=== PATIENT | male | born 1950 | race Caucasian/White ===

== ENCOUNTER → 2021-12-28 10:48 | Outpatient (BNVA) | payer OTHER, SELFPAY | PROVIDERS: PCP Internal Medicine; Visit Provider Psychiatry & Neurology Neurology | DX: G20 Parkinson's disease (principal); F32.A Depression, unspecified; Z79.899 Other long term (current) drug therapy | CPT/HCPCS: 99212 ==

== ENCOUNTER → 2022-03-29 10:36 | Outpatient (BNVA) | payer MEDICARE, BC, SELFPAY | PROVIDERS: PCP Internal Medicine; Visit Provider Psychiatry & Neurology Neurology | DX: G20 Parkinson's disease (principal); F32.A Depression, unspecified | CPT/HCPCS: 99212 ==

== ENCOUNTER → 2022-09-27 09:34 | Outpatient (BNVA) | payer MEDICARE, BC, SELFPAY | PROVIDERS: PCP Internal Medicine; Visit Provider Psychiatry & Neurology Neurology | DX: G20 Parkinson's disease (principal); F32.A Depression, unspecified; Z79.899 Other long term (current) drug therapy | CPT/HCPCS: 99212 ==

== ENCOUNTER → 2023-04-01 10:43 | Outpatient (BNVA) | payer MEDICARE, BC, SELFPAY | PROVIDERS: PCP Internal Medicine; Visit Provider Psychiatry & Neurology Neurology | DX: G20 Parkinson's disease (principal); F32.A Depression, unspecified | CPT/HCPCS: 99212 ==

== ENCOUNTER 2023-10-02 12:31 | Outpatient (AMB) | payer MEDICARE, BC, SELFPAY ==
--- NOTE | 2023-10-02 12:41 | MHC.OFFVIS ---
Intake Vital Signs 10/02/23 12:42 Height 5 ft 6 in Weight 171 lb 8 oz BMI 27.7 BP 114/72 Blood Pressure Location Rt brachial Position Sitting Respiration 17 Pulse 56 Pulse Source Pulse Oximeter Pulse Oximetry (%) 95 Oxygen Delivery Method Room Air Intake Visit Reasons: 6 mo follow up-confirmed Intake Note: Pt presents to the office for a 6 month follow up for tremors. He reports his tremors of the left upper extremity have gotten much worse since his last visit. Social Science Research Assistant Required: No Allergies pramipexole Allergy (Severe, Verified 10/02/23 12:45) Swelling metronidazole Adverse Reaction (Severe, Verified 10/02/23 12:45) Rash Medication List - Last Reconciled 10/02/23 by Janice Rushing MD apixaban (Eliquis) 5 mg PO BID aspirin (Adult Low Dose Aspirin) 81 mg PO DAILY carbidopa-levodopa 25-100 mg (Sinemet) 2 tabs PO TID 90 days carbidopa-levodopa 50-200 mg ER 1 tab PO BEDTIME citalopram 10 mg PO DAILY 90 days coenzyme Q10 200 mg PO DAILY melatonin 5 mg PO BEDTIME PRN metformin 500 mg PO DAILY metoprolol succinate ER 50 mg PO BID nitroglycerin 0.4 mg sublingual Q5M PRN rasagiline 1 mg PO DAILY 90 days rosuvastatin 5 mg PO DAILY HPI HPI Comments History of Present Illness Details 73y/o male comes for follow up. He did PT at [facility] ( [facility]) and it helped.He had 2 falls since last visit.He bedn down to take a tape of the floor and when he stood he fell backwards. The second fall was when he was trying to put his socks while sitting he slumped to the side. He noticed increase in tremors but does not affect his ADLs.He is losing balance more often. The tremors are worse when he is stressed.He is independent in his ADLs. His mood is good on citalopram.He is less irritable and more motivated. His voice improved. Parkinsons disease is manageable he walks good . He still has sleep issues but declines sleep study . He takes melatonin or tylenol PM or belsomra. no falls, no memory issues, no hallucinations . [facility] Medical History (Updated 10/02/23 @ 12:59 by Janice Rushing MD) Parkinson's disease with dyskinesia and fluctuating manifestations Depression Parkinson's Disease Hyperlipidemia HTN (hypertension) Heart disease Angina at rest STEMI (ST elevation myocardial infarction) Myocardial infarction Surgical History History of cataract surgery Hx of cholecystectomy Family History Mother COPD (chronic obstructive pulmonary disease) Father Hepatitis Social History Alcohol intake: never Patient Tobacco Use Status: Never used Tobacco Physical Exam Vital Signs: Last Vital Signs Pulse 56 10/02/23 12:42 Resp 17 10/02/23 12:42 BP 114/72 10/02/23 12:42 Pulse Ox 95 10/02/23 12:42 Oxygen Delivery Method Room Air 10/02/23 12:42 BMI result Body Mass Index 27.7 Const General: cooperative, healthy appearing and no acute distress Nutritional Appearance: average body habitus Orientation/consciousness: patient oriented x3 HEENT Head: Yes normal to inspection Neck Other: mild antecollis and restricted range of motion Neuro Other: Mild decreased blink and facial expression Voice- normal Mild to moderate dyskinesia Fine Finger movements - mild decreased beulah l>R Alternating hand movements - decreased beulah Hand movements - decreased beulah Foot taps- decreased beulah No cog wheel rigidity gait - stooped, mild slowness and decreased arm swing L>R General: patient oriented x3 and no focal motor deficits Cranial nerves: Yes CN's II-XII intact bilaterally, Yes Bilaterally intact EOM present, Yes Normal facial strength present, Yes Midline tongue present and Yes Ability to bilaterally rotate head present Cognition (Neuro): abnormal cognition (repeats questions frequently) Motor exam (neuro): 5/5 motor strength present throughout and Normal motor muscle tone present throughout Coordination: [id number] test normal Psych Mental Status: mental status grossly normal Affect: normal affect Assessment & Plan Assessment & Plan (1) Parkinson's disease with dyskinesia and fluctuating manifestations: Code(s): G20.B2 - Parkinson's disease with dyskinesia, with fluctuations (2) Depression: Code(s): F32.A - Depression, unspecified Plan Continue sinemet 25/100 2tabs tid . Trial sinemet CR 50/200 qhs azilect 1mg qd Citalopram 10 mg qd Continue exercise Discussed sleep hygiene He did not tolerate trihexyphenidyl Medications: New carbidopa-levodopa 50-200 mg ER 1 tab PO BEDTIME 60 tabs 6RF Changed From carbidopa-levodopa 25-100 mg (Sinemet) 2 tabs PO QID 90 days 720 tabs 6RF To carbidopa-levodopa 25-100 mg (Sinemet) 2 tabs PO TID 90 days 540 tabs 6RF Coding Level of Care Code Est Pt Level 4 (23913) Diagnoses Parkinson's disease with dyskinesia and fluctuating manifestations G20.B2 Depression F32.A
[2023-10-02 12:42] VITALS: BP 114/72; PULSE 56; RESP 17; O2SAT 95; BMI 27.7
== END 2023-10-02 13:06 | disposition home or self-care (01) ==
PROVIDERS: Visit Provider Psychiatry & Neurology Neurology
DX: G20.B2 Parkinson's disease with dyskinesia, with fluctuations (principal); F32.A Depression, unspecified
CPT/HCPCS: 99214

== ENCOUNTER → 2023-10-02 12:31 | Outpatient (BNVA) | payer MEDICARE, BC, SELFPAY | PROVIDERS: Visit Provider Psychiatry & Neurology Neurology | DX: G20.B2 Parkinson's disease with dyskinesia, with fluctuations (principal); F32.A Depression, unspecified; Z79.899 Other long term (current) drug therapy | CPT/HCPCS: 99212 ==

== ENCOUNTER 2024-04-08 10:18 | Outpatient (AMB) | payer MEDICARE, BC, SELFPAY ==
--- NOTE | 2024-04-08 10:26 | MHC.OFFVIS ---
Vital Signs 04/08/24 10:27 Height 5 ft 6 in Weight 176 lb 2 oz BMI 28.4 BP 118/70 Blood Pressure Location Rt brachial Position Sitting Respiration 16 Pulse 64 Pulse Source Palpation Intake Visit Reasons: 6M follow up - Confirmed Intake Note: Pt presents for 6 month follow up for Parkinson's. 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 Allergies pramipexole Allergy (Severe, Verified 04/08/24 10:27) Swelling metronidazole Adverse Reaction (Severe, Verified 04/08/24 10:27) Rash Medication List - Last Reconciled 04/08/24 by Janice Rushing MD apixaban (Eliquis) 5 mg PO BID aspirin (Adult Low Dose Aspirin) 81 mg PO DAILY carbidopa-levodopa 25-100 mg (Sinemet) 2 tabs PO TID 90 days carbidopa-levodopa 50-200 mg ER 1 tab PO BEDTIME 90 days citalopram 10 mg PO DAILY 90 days coenzyme Q10 200 mg PO DAILY melatonin 5 mg PO BEDTIME PRN metformin 500 mg PO DAILY metoprolol succinate ER 50 mg PO BID mirabegron ER (Myrbetriq) 25 mg PO DAILY nitroglycerin 0.4 mg sublingual Q5M PRN rasagiline 1 mg PO DAILY 90 days rosuvastatin 5 mg PO DAILY HPI Comments Details: 73y/o male comes for follow up. No falls since last visit. He closed the car doors on his fingers and is not sure why. He noticed increase in tremors but does not affect his ADLs.He is losing balance more often. The tremors are worse when he is stressed.He is independent in his ADLs. His mood is OK on citalopram.Back pain worsens his mood.\ He has dyskinesias 75% of the day when stressed . His voice improved. Parkinsons disease is manageable he walks good . He still has sleep issues but declines sleep study . He takes melatonin or tylenol PM or belsomra. no falls, no memory issues, no hallucinations He has constipation. . [facility] Medical History Parkinson's disease with dyskinesia and fluctuating manifestations Depression Parkinson's Disease Hyperlipidemia HTN (hypertension) Heart disease Angina at rest STEMI (ST elevation myocardial infarction) Myocardial infarction Surgical History History of cataract surgery Hx of cholecystectomy Family History Mother COPD (chronic obstructive pulmonary disease) Father Hepatitis Social History Alcohol intake: never Patient Tobacco Use Status: Never used Tobacco Physical Exam Vital Signs: Last Vital Signs Pulse 64 04/08/24 10:27 Resp 16 04/08/24 10:27 BP 118/70 04/08/24 10:27 BMI result Body Mass Index 28.4 Const General: cooperative, healthy appearing and no acute distress Nutritional Appearance: average body habitus Orientation/consciousness: patient oriented x3 HEENT Head: Yes normal to inspection Neck Other: mild antecollis and restricted range of motion Neuro Other: Mild decreased blink and facial expression Voice- normal Mild to moderate dyskinesia Fine Finger movements - mild decreased beulah l>R Alternating hand movements - decreased beulah Hand movements - decreased beulah Foot taps- decreased beulah No cog wheel rigidity gait - stooped, mild slowness and decreased arm swing L>R Moderate dyskinesias General: patient oriented x3 and no focal motor deficits Cranial nerves: Yes CN's II-XII intact bilaterally, Yes Bilaterally intact EOM present, Yes Normal facial strength present, Yes Midline tongue present and Yes Ability to bilaterally rotate head present Cognition (Neuro): abnormal cognition (repeats questions frequently) Motor exam (neuro): 5/5 motor strength present throughout and Normal motor muscle tone present throughout Coordination: uweysc-nh-hjod test normal Psych Mental Status: mental status grossly normal Affect: normal affect Assessment & Plan Assessment & Plan (1) Parkinson's disease with dyskinesia and fluctuating manifestations: Code(s): G20.B2 - Parkinson's disease with dyskinesia, with fluctuations Category: Medical (2) Depression: Code(s): F32.A - Depression, unspecified Category: Medical Plan I will switch him to Rytary 36.25/145 2 caps qid to manage his fluctuations and dyskinesias azilect 1mg qd Citalopram 10 mg qd Continue exercise Discussed sleep hygiene He did not tolerate trihexyphenidyl Orders: Orders PT Evaluation and Treatment Today G20.B2 - Parkinson's disease with dyskinesia, with fluctuations Medications: New polyethylene glycol 3350 (Miralax) 17 grams PO DAILY 510 grams 3RF carbidopa-levodopa 36.25-145 mg ER (Rytary) divide evenly over waking hours 2 caps PO QID 240 caps 7RF Discontinued carbidopa-levodopa 50-200 mg ER Discontinued Reason: Doctor's Order 1 tab PO BEDTIME 90 days 90 tabs 6RF carbidopa-levodopa 25-100 mg (Sinemet) Discontinued Reason: Doctor's Order 2 tabs PO TID 90 days 540 tabs 6RF Coding Level of Care Code Est Pt Level 4 (86730) Complex EM visit Add On G2211 Diagnoses Parkinson's disease with dyskinesia and fluctuating manifestations G20.B2 Depression F32.A
[2024-04-08 10:27] VITALS: BP 118/70; PULSE 64; RESP 16; BMI 28.4
== END 2024-04-08 11:07 | disposition home or self-care (01) ==
PROVIDERS: PCP Internal Medicine; Visit Provider Psychiatry & Neurology Neurology
DX: G20.B2 Parkinson's disease with dyskinesia, with fluctuations (principal); F32.A Depression, unspecified
CPT/HCPCS: 99214; G2211

== ENCOUNTER → 2024-04-08 10:18 | Outpatient (BNVA) | payer MEDICARE, BC, SELFPAY | PROVIDERS: PCP Internal Medicine; Visit Provider Psychiatry & Neurology Neurology | DX: G20.B2 Parkinson's disease with dyskinesia, with fluctuations (principal); F32.A Depression, unspecified | CPT/HCPCS: 99212 ==

== ENCOUNTER 2024-08-10 12:47 | Outpatient (AMB) | payer MEDICARE, BC, SELFPAY ==
--- NOTE | 2024-08-10 12:58 | MHC.OFFVIS ---
Vital Signs 08/10/24 13:00 Height 5 ft 6 in Weight 173 lb 8 oz BMI 28.0 BP 102/58 L Blood Pressure Location Rt brachial Position Sitting Respiration 16 Pulse 64 Pulse Source Palpation Intake Visit Reasons: 2 Month Follow Up Intake Note: Pt presents for a 4 month follow up for Parkinson's. 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 Allergies pramipexole Allergy (Severe, Verified 08/10/24 12:58) Swelling metronidazole Adverse Reaction (Severe, Verified 08/10/24 12:58) Rash Medication List - Last Reconciled 08/10/24 by Janice Rushing MD apixaban (Eliquis) 5 mg PO BID aspirin (Adult Low Dose Aspirin) 81 mg PO DAILY carbidopa-levodopa 36.25-145 mg ER (Rytary) 2 caps PO QID citalopram 10 mg PO DAILY 90 days coenzyme Q10 200 mg PO DAILY duloxetine (Cymbalta) 30 mg PO DAILY melatonin 5 mg PO BEDTIME PRN metformin 500 mg PO DAILY metoprolol succinate ER 50 mg PO BID mirabegron ER (Myrbetriq) 25 mg PO DAILY nitroglycerin 0.4 mg sublingual Q5M PRN polyethylene glycol 3350 (Miralax) 17 grams PO DAILY rasagiline 1 mg PO DAILY 90 days rosuvastatin 5 mg PO DAILY HPI Comments Details: 73y/o male comes for follow up. He has low back pain-was on cortisone shots but did not help. No falls since last visit. He noticed increase in tremors but does not affect his ADLs.He is losing balance more often. The tremors are worse when he is stressed.He is independent in his ADLs. His mood is OK on citalopram.Back pain worsens his mood.\ He has dyskinesias 75% of the day when stressed . His voice improved. Parkinsons disease is manageable he walks good . He still has sleep issues but declines sleep study . He takes melatonin or tylenol PM or belsomra. no falls, no memory issues, no hallucinations He has constipation. . [facility] Medical History (Updated 08/10/24 @ 13:38 by Janice Rushing MD) Chronic back pain Parkinson's disease with dyskinesia and fluctuating manifestations Depression Parkinson's Disease Hyperlipidemia HTN (hypertension) Heart disease Angina at rest STEMI (ST elevation myocardial infarction) Myocardial infarction Surgical History History of cataract surgery Hx of cholecystectomy Family History Mother COPD (chronic obstructive pulmonary disease) Father Hepatitis Social History Alcohol intake: never Patient Tobacco Use Status: Never used Tobacco Physical Exam Vital Signs: Last Vital Signs Pulse 64 08/10/24 13:00 Resp 16 08/10/24 13:00 BP 102/58 L 08/10/24 13:00 BMI result Body Mass Index 28.0 Const General: cooperative, healthy appearing and no acute distress Nutritional Appearance: average body habitus Orientation/consciousness: patient oriented x3 HEENT Head: Yes normal to inspection Neck Other: mild antecollis and restricted range of motion Neuro Other: Mild decreased blink and facial expression Voice- normal Mild to moderate dyskinesia Fine Finger movements - mild decreased beulah l>R Alternating hand movements - decreased beulah Hand movements - decreased beulah Foot taps- decreased beulah No cog wheel rigidity gait - stooped, mild slowness and decreased arm swing L>R Moderate dyskinesias General: patient oriented x3 and no focal motor deficits Cranial nerves: Yes CN's II-XII intact bilaterally, Yes Bilaterally intact EOM present, Yes Normal facial strength present, Yes Midline tongue present and Yes Ability to bilaterally rotate head present Cognition (Neuro): abnormal cognition (repeats questions frequently) Motor exam (neuro): 5/5 motor strength present throughout and Normal motor muscle tone present throughout Coordination: [id number] test normal Psych Mental Status: mental status grossly normal Affect: normal affect Assessment & Plan Assessment & Plan (1) Parkinson's disease with dyskinesia and fluctuating manifestations: Code(s): G20.B2 - Parkinson's disease with dyskinesia, with fluctuations Category: Medical (2) Depression: Code(s): F32.A - Depression, unspecified Category: Medical (3) Chronic back pain: Code(s): M54.9 - Dorsalgia, unspecified; G89.29 - Other chronic pain Category: Medical Plan D/c azilect Rytary was expensive so he is still on sinemet 25/100 2 tabs tid and sinemet CR 50/200 qhs Citalopram 10 mg qd Continue exercise Discussed sleep hygiene He did not tolerate trihexyphenidyl Medications: New duloxetine (Cymbalta) 30 mg PO DAILY 30 caps 6RF carbidopa-levodopa 25-100 mg (Sinemet) 2 tabs PO TID carbidopa-levodopa 50-200 mg ER 1 tab PO BEDTIME Discontinued rasagiline Discontinued Reason: Doctor's Order 1 mg PO DAILY 90 days 90 tabs 6RF carbidopa-levodopa 36.25-145 mg ER (Rytary) divide evenly over waking hours Discontinued Reason: Patient no longer taking 2 caps PO QID 240 caps 7RF Coding Level of Care Code Est Pt Level 4 (11987) Complex EM visit Add On G2211 Diagnoses Parkinson's disease with dyskinesia and fluctuating manifestations G20.B2 Depression F32.A Chronic back pain M54.9; G89.29
[2024-08-10 13:00] VITALS: BP 102/58; PULSE 64; RESP 16; BMI 28.0
== END 2024-08-10 13:51 | disposition home or self-care (01) ==
PROVIDERS: PCP Internal Medicine; Visit Provider Psychiatry & Neurology Neurology
DX: G20.B2 Parkinson's disease with dyskinesia, with fluctuations (principal); F32.A Depression, unspecified; M54.9 Dorsalgia, unspecified; G89.29 Other chronic pain
CPT/HCPCS: 99214; G2211

== ENCOUNTER → 2024-08-10 12:47 | Outpatient (BNVA) | payer MEDICARE, BC, SELFPAY | PROVIDERS: PCP Internal Medicine; Visit Provider Psychiatry & Neurology Neurology | DX: G20.B2 Parkinson's disease with dyskinesia, with fluctuations (principal); F32.A Depression, unspecified; M54.9 Dorsalgia, unspecified; G89.29 Other chronic pain | CPT/HCPCS: 99212 ==

== ENCOUNTER 2024-12-09 11:15 | Outpatient (AMB) | payer MEDICARE, BC, SELFPAY ==
[2024-12-09 11:23] VITALS: BP 118/72; PULSE 61; O2SAT 97; BMI 28.7
--- NOTE | 2024-12-09 11:23 | MHC.OFFVIS ---
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 Accompanied by: Spouse Allergies pramipexole Allergy (Severe, Verified 12/09/24 11:26) Swelling metronidazole Adverse Reaction (Severe, Verified 12/09/24 11:26) Rash Medication List - Last Reconciled 12/09/24 by Janice Rushing MD apixaban (Eliquis) 5 mg PO BID aspirin (Adult Low Dose Aspirin) 81 mg PO DAILY carbidopa-levodopa 25-100 mg (Sinemet) 2 tabs PO TID carbidopa-levodopa 50-200 mg ER 1 tab PO BEDTIME citalopram 10 mg PO DAILY 90 days coenzyme Q10 200 mg PO DAILY duloxetine (Cymbalta) 30 mg PO DAILY melatonin 5 mg PO BEDTIME PRN metformin 500 mg PO DAILY metoprolol succinate ER 50 mg PO BID mirabegron ER (Myrbetriq) 25 mg PO DAILY nitroglycerin 0.4 mg sublingual Q5M PRN polyethylene glycol 3350 (Miralax) 17 grams PO DAILY rasagiline (Azilect) 1 mg PO DAILY rosuvastatin 5 mg PO DAILY Do you need a note to return to daycare/school/sports/work: No HPI Comments Details: 74y/o male comes for follow up of parkinsons disease. He has low back pain-was on cortisone shots but did not help. No falls since last visit. He noticed increase in tremors but does not affect his ADLs.He is losing balance more often. The tremors are worse when he is stressed.He is independent in his ADLs. He feels his tremors are worse with stopping azilect and starting duloxetine. He feels he is more slower in all his activities. His mood is OK on citalopram. He has dyskinesias . His voice improved. Parkinsons disease is manageable he walks good . He still has sleep issues but declines sleep study . He takes melatonin or tylenol PM or belsomra. no falls, no memory issues, no hallucinations He has constipation. . [facility] Medical History Chronic back pain Parkinson's disease with dyskinesia and fluctuating manifestations Depression Parkinson's Disease Hyperlipidemia HTN (hypertension) Heart disease Angina at rest STEMI (ST elevation myocardial infarction) Myocardial infarction Surgical History History of cataract surgery Hx of cholecystectomy Family History Mother COPD (chronic obstructive pulmonary disease) Father Hepatitis Social History Alcohol intake: never Patient Tobacco Use Status: Never used Tobacco Physical Exam Vital Signs: Last Vital Signs Pulse 61 12/09/24 11:23 BP 118/72 12/09/24 11:23 Pulse Ox 97 12/09/24 11:23 Oxygen Delivery Method Room Air 12/09/24 11:23 BMI result Body Mass Index 28.7 Const General: cooperative, healthy appearing and no acute distress Nutritional Appearance: average body habitus Orientation/consciousness: patient oriented x3 HEENT Head: Yes normal to inspection Neck Other: mild antecollis and restricted range of motion Neuro Other: Mild decreased blink and facial expression Voice- normal Mild to moderate dyskinesia Fine Finger movements - mild decreased beulah l>R Alternating hand movements - decreased beulah Hand movements - decreased beulah Foot taps- decreased beulah No cog wheel rigidity gait - stooped, mild slowness and decreased arm swing L>R no dyskinesias General: patient oriented x3 and no focal motor deficits Cranial nerves: Yes CN's II-XII intact bilaterally, Yes Bilaterally intact EOM present, Yes Normal facial strength present, Yes Midline tongue present and Yes Ability to bilaterally rotate head present Cognition (Neuro): abnormal cognition (repeats questions frequently) Motor exam (neuro): 5/5 motor strength present throughout and Normal motor muscle tone present throughout Coordination: [id number] test normal Psych Mental Status: mental status grossly normal Affect: normal affect Assessment & Plan Assessment & Plan (1) Parkinson's disease with dyskinesia and fluctuating manifestations: Code(s): G20.B2 - Parkinson's disease with dyskinesia, with fluctuations Category: Medical (2) Depression: Code(s): F32.A - Depression, unspecified Category: Medical Qualifiers: Depression Type: other depression Qualified Code(s): F32.89 - Other specified depressive episodes (3) Chronic back pain: Code(s): M54.9 - Dorsalgia, unspecified; G89.29 - Other chronic pain Category: Medical Qualifiers: Back pain location: low back pain Back pain laterality: midline Sciatica presence: with sciatica Sciatica laterality: sciatica of left side Qualified Code(s): M54.42 - Lumbago with sciatica, left side; G89.29 - Other chronic pain Plan Restart azilect 1mg qd Rytary was expensive so he is still on sinemet 25/100 2 tabs tid and sinemet CR 50/200 qhs Citalopram 10 mg qd Tylenol 500mg qhs Continue exercise Discussed sleep hygiene He did not tolerate trihexyphenidyl Orders: Referrals Pain Management Referral G89. - Other chronic pain, M54.9 - Dorsalgia, unspecified Medications: New rasagiline (Azilect) 1 mg PO DAILY 30 tabs 6RF Changed From duloxetine (Cymbalta) 60 mg (2 x 30 mg) PO DAILY 60 caps 6RF To duloxetine (Cymbalta) 30 mg PO DAILY 30 caps 6RF Coding Level of Care Code Est Pt Level 4 (73167) Complex EM visit Add On G2211 Diagnoses Parkinson's disease with dyskinesia and fluctuating manifestations G20.B2 Other depression F32.89 Depression Type: other depression Chronic midline low back pain with left-sided sciatica M54.42; G89.29 Back pain location: low back pain Back pain laterality: midline Sciatica presence: with sciatica Sciatica laterality: sciatica of left side
--- OUTSIDE RECORDS SUMMARY | 2024-12-09 11:38 | XMS_ITS | Continuity of Care Document ---
Author Organization [facility] Address [facility] [place] [address]- Care Team Providers Care Farmer Cash Grain Name Role Phone Mariella DIAS, Callum Zapata Primary Care Physician Encounter [facility] [place] Date(s): 11/02/24 - 12/02/24 [facility] [address] [place] [id number] Encounter Type: Triage Allergies, Adverse Reactions, Alerts Substance Criticality Severity Reaction Reaction Severity Status Flagyl Active Adhesive Bandage Unable to assess criticality Persistent Mild rash Active Pramipexole Dihydrochloride Active MetroNIDAZOLE Benzoate Active amLODIPine swelling of hands and legs Active Immunizations Given and Recorded Vaccine Date Status Refusal Reason Twinrix (oldterm) 1 04/06/10 Given Twinrix (oldterm) 2 12/08/09 Given Twinrix (oldterm) 3 10/06/09 Given 1Admin Note: vis declined 2Admin Note: #2 VIS given 3Admin Note: #1 VIS DECLINED Medications apixaban 5 mg oral tablet 1 tablet = 5 mg, By Mouth, 2 times a day, # 180 tablet, 3 Refills, Maintenance, 11/02/24 12:28:00 PMEST, Tablet, [facility], 168, cm, 09/25/24 10:25:00 EDT, Height, 77, kg, 10/23/23 23:03:00 EST, Dry Weight Start Date: 11/02/24 Stop Date: 10/28/25 Status: Ordered Quantity: 180.0 Unit: tablet Repeat number: 4 aspirin 81 mg oral delayed release tablet 81 mg, 1, tablet, By Mouth, Daily, # 90 tablet, Refills 3, Tot. Refills 3, Maintenance, 12/2/24 12:28:00 PM EST, Route to Pharmacy Electronically, [facility], Partial fill upon patient request if the prescription is for a schedule II opioid drug., 168, cm, 09/25/24 10:25:00 EDT, Height, 77,kg, 10/23/23 23:03:00 EST, Dry Weight Start Date: 11/02/24 Stop Date: 10/28/25 Status: Ordered Quantity: 90.0 Unit: tablet Repeat number: 4 Azilect 1 mg oral tablet 1 tablet = 1 mg, By Mouth, Daily, # 90 tablet, 1 Refills, Maintenance, 11/22/20 3:16:00 PM EST, Tablet, [facility], Partial fill upon patient request if the prescription is for a schedule II opioid drug., 167, cm, 11/22/20 14:34:00 EST, Height, 84.1, kg, 08/31/19 7:25:00 EDT, Dry Weight Start Date: 11/22/20 Stop Date: 05/21/21 Status: Ordered Quantity: 90.0 Unit: tablet Repeat number: 2 carbidopa-levodopa 25 mg-100 mg oral tablet 2 tablet, By Mouth, 4 times a day, 0 Refills, Maintenance, 08/17/19 4:28:30 PM EDT, Tablet Start Date: 08/17/19 Status: Ordered Repeat number: 1 Citalopram = 10 mg, By Mouth, Daily, 0 Refills, Maintenance, 01/17/22 9:40:00 AM EST, Partial fill upon patientrequest if the prescription is for a schedule II opioid drug. Start Date: 01/17/22 Status: Ordered Repeat number: 1 Co-Q10 100 mg oral capsule 1 capsule = 100 mg, By Mouth, Daily, # 30 capsule, 0 Refills, Maintenance, 07/19/21 9:48:00 AM EDT, Capsule, Partial fill upon patient request if the prescription is for a schedule II opioid drug. Start Date: 07/19/21 Status: Ordered Quantity: 30.0 Unit: capsule Repeat number: 1 Loratadine 10 mg, By Mouth, Daily, Maintenance, 07/27/12 3:57:33 PM EDT Start Date: 07/27/12 Status: Ordered Repeat number: 1 metFORMIN 500 mg oral tablet 1 tablet = 500 mg, By Mouth, Daily, PRN Blood Glucose, with meals, # 30 tablet, 0 Refills, Maintenance, 08/16/19 1:23:40 PM EDT, Tablet Start Date: 08/16/19 Status: Ordered Quantity: 30.0 Unit: tablet Repeat number: 1 Myrbetriq 25 mg oral tablet, extended release 1 tablet = 25 mg, By Mouth, Daily, do not crush or chew, # 30 tablet, 0 Refills, Maintenance, 09/25/24 10:25:00 AM EDT, ER Tablet, Partial fill upon patient request if the prescription is for a schedule II opioid drug. Start Date: 09/25/24 Status: Ordered Quantity: 30.0 Unit: tablet Repeat number: 1 nitroglycerin 0.4 mg sublingual tablet 1 tablet = 0.4 mg, Sublingual, Every 5 minutes, PRN for chest pain, # 25 tablet, 3 Refills, Maintenance, 10/22/18 2:59:34 PM EST, Tablet, [facility] Start Date: 10/22/18 Status: Ordered Quantity: 25.0 Unit: tablet Repeat number: 4 rosuvastatin 5 mg oral tablet 1 tablet, By Mouth, Daily, # 90 tablet, 3 Refills, Maintenance, 11/02/24 12:28:00 PM EST, [facility], 168, cm, 09/25/24 10:25:00 EDT, Height, 77, kg, 10/23/23 23:03:00 EST, Dry Weight Start Date: 11/02/24 Status: Ordered Quantity: 90.0 Unit: tablet Repeat number: 4 Toprol XL 50 mg oral tablet, extended release 50 mg, 1, tablet, By Mouth, 2 times a day, # 180 tablet, Refills 3, Tot. Refills 3, Maintenance, 11/02/24 12:28:00 PM EST, Route to Pharmacy Electronically, [facility], Partial fill upon patient request if the prescription is for a schedule II opioid drug., 168, cm, 09/25/24 10:25:00 EDT, Height, 77, kg, 10/23/23 23:03:00 EST, Dry Weight Start Date: 11/02/24 Stop Date: 10/28/25 Status: Ordered Quantity: 180.0 Unit: tablet Repeat number: 4 Problem List Condition Confirmation Course Effective Dates Status Health Status Informant Benign essential HTN Confirmed Active CAD (coronary artery disease) Confirmed Active OLSON (dyspnea on exertion) Confirmed Active Tremor of left hand Confirmed Active Hypercholesterolemia Confirmed Active Old OR (myocardial infarction) Confirmed Active Parkinson's disease Confirmed Active Parkinsonism Confirmed Active ST elevation OR (STEMI) Confirmed 07/28/[address] elevation OR (STEMI) Confirmed 07/28/12 Active Stable angina Confirmed Active Social History Social History Type Response Smoking Status Never smoker; Tobacc o user in household: No entered on: 05/10/16 Sex Sex Representation Male (finding) Patient Care team information Care Team Personnel Name: Zuleika Peralta Position: [facility] RN Supv Member Role: Primary Care Nurse Name: Radha Kirkland RN Position: S RN Member Role: Primary Care Nurse Name: Genny Nagy RN Position: [facility] ED RN W/OE and Tasks Member Role: Primary Care Nurse Name: Calulm Wolff MD Position: [facility] Physician - Primary Care Member Role: PCP Address: [address] [place] [address] Telecom: Name: Marely Hyman RN Position: [facility] RN Member Role: Primary Care Nurse Care Team Related Persons Name: JULIO ROGEL Insurance Providers Guarantor name: JUAN JOSE ROGEL Health Plan Information #: 1 Payer: MEDICARE PART B OUTPT Member Number: NA Policy Number: NA Group Number: NA Health Plan Information #: 2 Payer: BLUE MEDICARE SUPPL Member Number: NA Policy Number: NA Group Number: NA
--- OUTSIDE RECORDS SUMMARY | 2024-12-09 11:38 | XMS_ITS ---
Author Name [facility] Organization Unknown History of Medication Use Medication Directions Dispensed Refills Start Date End Date [facility] sulfamethoxazole 800 mg-trimethoprim 160 mg tablet 05/03/2024 active metoprolol succinate ER 50 mg tablet,extended release 24 hr 03/22/2024 active citalopram 10 mg tablet 03/22/2024 active rasagiline 1 mg tablet 03/22/2024 active carbidopa ER 50 mg-levodopa 200 mg tablet,extended release 03/22/2024 active cephalexin 500 mg capsule 03/22/2024 completed oxycodone 5 mg tablet 03/22/2024 completed carbidopa 25 mg-levodopa 100 mg tablet 03/22/2024 active cefdinir 300 mg capsule 03/22/2024 completed metformin 500 mg tablet 03/22/2024 active rosuvastatin 5 mg tablet 03/22/2024 active Myrbetriq 25 mg tablet,extended release 03/22/2024 active Eliquis 5 mg tablet 03/22/2024 a ctive prednisolone acetate 1 % eye drops,suspension 03/22/2024 active citalopram 10 mg tablet 03/13/2024 active Myrbetriq 25 mg tablet,extended release 03/13/2024 active carbidopa ER 50 mg-levodopa 200 mg tablet,extended release 03/13/2024 active rasagiline 1 mg tablet 03/13/2024 active oxycodone 5 mg tablet 03/13/2024 active Eliquis 5 mg tablet 03/13/2024 a ctive carbidopa 25 mg-levodopa 100 mg tablet 03/13/2024 active cefdinir 300 mg capsule 03/13/2024 completed cephalexin 500 mg capsule 03/13/2024 active prednisolone acetate 1 % eye drops,suspension 03/13/2024 active metformin 500 mg tablet 03/13/2024 active rosuvastatin 5 mg tablet 03/13/2024 active metoprolol succinate ER 50 mg tablet,extended release 24 hr 03/13/2024 active tranexamic acid Topical/Nebulization Administration 1,000 mg 1,000 mg, Topical, Once, On Sat03/09/24 at 1930, For 1 dose*For Topical/Nebulizat ion Administration* 03/12/2024 completed cefTRIAXone (ROCEPHIN) injection 1,000 mg 1,000 mg, Intramuscular, Once, On Sat03/09/24 at 2115, For 1 doseIf ordered IV then reconstitute with 10 mL sterile water or normal saline and administer IV push over 3 to 5 minutes. 03/12/2024 completed silver nitrate applicators 5 application. 5 application., Topical, Once, On Sat03/09/24 at 2315, For 1 doseApply to finger 03/12/2024 completed cephalexin (KEFLEX) 500 MG capsule Take 1 capsule (500 mg total) by mouth 4 (four) times a day for 5 days. 03/12/2024 active oxyCODONE (ROXICODONE) 5 MG immediate release tablet Take 1 tablet (5 mg total) by mouth every 6 (six) hours as needed. 03/12/2024 active lidocaine (pf) (XYLOCAINE-MPF) 2 % injection 2 mL 2 mL, Infiltration, Once, On Sat03/09/24 at 2315, For 1 dose 03/12/2024 completed Problems Problem Status Onset Date Problem Type Date of Resolution Source Open finger fracture active EncounterDiagnosisAct CTTHJM H Finger amputation, traumatic active EncounterDiagnosisAct CTTHJM H Open fracture finger distal phalanx, tuft active 2024-03-11 ProblemAct ENS_AONECT
== END 2024-12-09 12:03 | disposition home or self-care (01) ==
PROVIDERS: PCP Internal Medicine; Visit Provider Psychiatry & Neurology Neurology
DX: G20.B2 Parkinson's disease with dyskinesia, with fluctuations (principal); F32.89 Other specified depressive episodes; M54.42 Lumbago with sciatica, left side; G89.29 Other chronic pain
CPT/HCPCS: 99214; G2211

== ENCOUNTER → 2024-12-09 11:15 | Outpatient (BNVA) | payer MEDICARE, BC, SELFPAY | PROVIDERS: PCP Internal Medicine; Visit Provider Psychiatry & Neurology Neurology | DX: G20.B2 Parkinson's disease with dyskinesia, with fluctuations (principal); F32.89 Other specified depressive episodes; M54.42 Lumbago with sciatica, left side; G89.29 Other chronic pain | CPT/HCPCS: 99212 ==

== ENCOUNTER 2024-12-21 10:50 | Outpatient (AMB) | payer MEDICARE, BC, SELFPAY ==
--- NOTE | 2024-12-21 11:11 | A.OFFVIS_ITS ---
Vital Signs 12/21/24 11:13 Height 5 ft 6 in Weight 177 lb BMI 28.6 BP 137/72 Blood Pressure Location Rt brachial Position Sitting Respiration 16 Pulse 61 Pulse Source Pulse Oximeter Intake Visit Reasons: Dorsalgia Allergies pramipexole Allergy (Severe, Verified 01/04/25 13:04) Swelling metronidazole Adverse Reaction (Severe, Verified 01/04/25 13:04) Rash Medication List - Last Reconciled 12/21/24 by Nasreen Rosas LPN apixaban (Eliquis) 5 mg PO BID aspirin (Adult Low Dose Aspirin) 81 mg PO DAILY carbidopa-levodopa 25-100 mg (Sinemet) 2 tabs PO TID carbidopa-levodopa 50-200 mg ER 1 tab PO BEDTIME coenzyme Q10 200 mg PO DAILY duloxetine (Cymbalta) 30 mg PO DAILY melatonin 5 mg PO BEDTIME PRN metformin 500 mg PO DAILY metoprolol succinate ER 50 mg PO BID mirabegron ER (Myrbetriq) 25 mg PO DAILY nitroglycerin 0.4 mg sublingual Q5M PRN rasagiline (Azilect) 1 mg PO DAILY rosuvastatin 5 mg PO DAILY HPI HPI Dorsalgia: Details: History of Present Illness The patient is a 74-year-old male presenting with chronic low back pain. He reports that the pain began approximately five years ago and is predominantly felt in the midline lower back with radiation down the legs at times. The patient also experiences right shoulder pain. The back pain is constant, described as an aching 8 out of 10 in intensity, worsening with weather changes and movement, especially severe in the evenings, and hindering his sleep and daily activities. Attempts to manage the pain included topical and oral medications, providing some relief. He has undergone physical therapy, including sessions focused on low back and shoulder pain, which offered transient improvement. An MRI of the lower back conducted in 2021 suggested issues with lumbar spondylosis and disc degeneration. The pain worsened over the years, with intermittent episodes of sciatica diagnosed, contributing to his difficulties. Past interventions, including cortisone injections, provided limited duration relief. Pain Description - Onset: Approximately 5 years ago - Quality: Aching - Intensity: 8/10, most severe in the evening - Primary Location: Midline lower back - Radiation: Occasionally down the legs - Exacerbating Factors: Weather changes, movements - Relieving Factors: Topical and oral medications - Interference: Sleep disturbances, daily activities limitations Physical Exam - Musculoskeletal- Lumbar extension exacerbates pain on the right side more than the left side. Results - Tests and Diagnostics: MRI of the lower back in 2021 Pain Management - Affect: Pain impacts sleep and daily functioning - Analgesia: Current medications include topical creams and oral medications; current pain level is 8/10 - Adverse Effects: Previous cortisone injections provided only short-term relief - Activities of Daily Living: Pain limits sleep and daily activities - Aberrant Drug Related Behaviors: None reported [facility] Medical History Chronic back pain Parkinson's disease with dyskinesia and fluctuating manifestations Depression Parkinson's Disease Hyperlipidemia HTN (hypertension) Heart disease Angina at rest STEMI (ST elevation myocardial infarction) Myocardial infarction Surgical History History of cataract surgery Hx of cholecystectomy Family History Mother COPD (chronic obstructive pulmonary disease) Father Hepatitis Social History Alcohol intake: never Patient Tobacco Use Status: Never used Tobacco Physical Exam Vital Signs: Last Vital Signs Pulse 61 12/21/24 11:13 Resp 16 12/21/24 11:13 BP 137/72 12/21/24 11:13 BMI result Body Mass Index 28.6 Assessment & Plan Assessment & Plan (1) Chronic back pain: Code(s): M54.9 - Dorsalgia, unspecified; G89.29 - Other chronic pain Category: Medical Qualifiers: Back pain location: low back pain Back pain laterality: midline Sciatica presence: with sciatica Sciatica laterality: sciatica of left side Qualified Code(s): M54.42 - Lumbago with sciatica, left side; G89.29 - Other chronic pain (2) Dysfunction of the multifidus muscle of lumbar region: Code(s): M62.85 - Dysfunction of the multifidus muscles, lumbar region Category: Medical (3) Lumbar spondylosis: Code(s): M47.816 - Spondylosis without myelopathy or radiculopathy, lumbar region Category: Medical Plan Plan - Initiate right L3 medial branch nerve stimulation for two months to address chronic low back pain secondary to lumbar spondylosis and multifidus atrophy - Hold Eliquis three days prior to the procedure - Seek insurance authorization for the nerve stimulator placement - If authorized, proceed with the procedure - Consider alternative treatment if nerve stimulation does not provide relief, including radiofrequency ablation Patient was informed and verbally consented to the use of an ambient scribe for clinic note documentation during this visit. Discussion Notes I discussed the plan for right L3 medial branch nerve stimulation to address the patient's chronic low back pain attributable to lumbar spondylosis and multifidus atrophy. I explained this procedure involves placing a thin wire to stimulate the nerves, and it typically provides pain relief for 6 to 12 months post-procedure. There is a 70% success rate with this treatment. We reviewed holding Eliquis three days prior to the procedure to minimize bleeding risks. Alternative options like radiofrequency ablation were considered if the nerve stimulators are not approved or ineffective. For sleep improvement related to pain, I mentioned the use of Tylenol at appropriate doses, contingent on liver health. The patient consents to proceed with insurance requisition. Patient Instructions - Await contact regarding insurance approval - Hold Eliquis three days prior to the procedure, pending the appointment - Continue current pain management strategies until the procedure - Consider using Tylenol to aid with sleep as needed, checking for interactions with liver health - Follow up as needed for any new or worsening symptoms or complications Coding Level of Care Code New Pt Level 4 (38812) Diagnoses Chronic midline low back pain with left-sided sciatica M54.42; G89.29 Back pain location: low back pain Back pain laterality: midline Sciatica presence: with sciatica Sciatica laterality: sciatica of left side Dysfunction of the multifidus muscle of lumbar region M62.85 Lumbar spondylosis M47.816
[2024-12-21 11:13] VITALS: BP 137/72; PULSE 61; RESP 16; BMI 28.6
== END 2024-12-21 11:43 | disposition home or self-care (01) ==
PROVIDERS: PCP Internal Medicine; Referring Provider Psychiatry & Neurology Neurology; Visit Provider Internal Medicine
DX: M54.42 Lumbago with sciatica, left side (principal); G89.29 Other chronic pain; M62.85 Dysfunction of the multifidus muscles, lumbar region; M47.816 Spondylosis without myelopathy or radiculopathy, lumbar region
CPT/HCPCS: 99204

== ENCOUNTER → 2024-12-21 10:50 | Outpatient (BNVA) | payer MEDICARE, BC, SELFPAY | PROVIDERS: PCP Internal Medicine; Referring Provider Psychiatry & Neurology Neurology; Visit Provider Internal Medicine | DX: M54.42 Lumbago with sciatica, left side (principal); M47.816 Spondylosis without myelopathy or radiculopathy, lumbar region; M62.85 Dysfunction of the multifidus muscles, lumbar region; G89.29 Other chronic pain | CPT/HCPCS: 99202 ==

== ENCOUNTER 2025-01-04 12:54 | Outpatient (AMB) | payer MEDICARE, BC, SELFPAY ==
--- NOTE | 2025-01-04 13:01 | MHC.OFFVIS ---
Vital Signs 01/04/25 13:02 Height 5 ft 6 in Weight 177 lb BMI 28.6 BP 135/78 Blood Pressure Location Lt brachial Position Sitting Respiration 16 Pulse 63 Pulse Source Pulse Oximeter Pulse Oximetry (%) 99 Oxygen Delivery Method Room Air Intake Visit Reasons: Sprint Procedure Discussion Bioassayist Required: No Allergies pramipexole Allergy (Severe, Verified 01/04/25 13:04) Swelling metronidazole Adverse Reaction (Severe, Verified 01/04/25 13:04) Rash Medication List - Last Reconciled 01/04/25 by Nasreen Rosas LPN apixaban (Eliquis) 5 mg PO BID aspirin (Adult Low Dose Aspirin) 81 mg PO DAILY carbidopa-levodopa 25-100 mg (Sinemet) 2 tabs PO TID carbidopa-levodopa 50-200 mg ER 1 tab PO BEDTIME citalopram 10 mg PO DAILY coenzyme Q10 200 mg PO DAILY duloxetine (Cymbalta) 30 mg PO DAILY melatonin 5 mg PO BEDTIME PRN metformin 500 mg PO DAILY metoprolol succinate ER 50 mg PO BID mirabegron ER (Myrbetriq) 25 mg PO DAILY nitroglycerin 0.4 mg sublingual Q5M PRN rasagiline (Azilect) 1 mg PO DAILY rosuvastatin 5 mg PO DAILY HPI HPI Sprint Procedure Discussion: Details: History of Present Illness The patient is a 74-year-old male presenting with chronic low back pain and sciatica. He has been experiencing these issues for an extended period, which have not resolved with multiple previous interventions, including cortisone injections and medicinal management. The patient reports limited success with cortisone injections, having received one in the shoulder and two in the back; the shoulder injection provided temporary relief for a few weeks, but the sciatica in the back persisted. 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 The patient is currently taking duloxetine for pain management, questioning its efficacy, and is considering discontinuing its use. Pain Description - Chronic low back pain with episodes of exacerbation - Pain occasionally radiates down the leg consistent with sciatica - Previous cortisone injections provided temporary relief - Duloxetine use with undetermined efficacy - Reports discomfort primarily on the right side Physical Exam Appears afebrile. Alert and oriented. Mood and affect appropriate. Follows and participates in conversation appropriately. Respiratory effort is unlabored. Able to transition from sit to stand unassisted. Ambulates with bilaterally normal heel strike and toe off. Able to stand and walk on toes and heels. Results Pain Management - Affect: Patient expresses frustration due to lack of lasting relief from multiple procedures. - Analgesia: Currently on duloxetine; questioning its effectiveness. - Adverse Effects: None reported in relation to current pain management. - Activities of Daily Living: Pain interferes with daily activities, leading to functional limitations. - Aberrant Drug Related Behaviors: None reported. [facility] Medical History Chronic back pain Parkinson's disease with dyskinesia and fluctuating manifestations Depression Parkinson's Disease Hyperlipidemia HTN (hypertension) Heart disease Angina at rest STEMI (ST elevation myocardial infarction) Myocardial infarction Surgical History History of cataract surgery Hx of cholecystectomy Family History Mother COPD (chronic obstructive pulmonary disease) Father Hepatitis Social History Alcohol intake: never Patient Tobacco Use Status: Never used Tobacco Physical Exam Vital Signs: Last Vital Signs Pulse 63 01/04/25 13:02 Resp 16 01/04/25 13:02 BP 135/78 01/04/25 13:02 Pulse Ox 99 01/04/25 13:02 Oxygen Delivery Method Room Air 01/04/25 13:02 BMI result Body Mass Index 28.6 Assessment & Plan Assessment & Plan (1) Lumbar spondylosis: Code(s): M47.816 - Spondylosis without myelopathy or radiculopathy, lumbar region Category: Medical (2) Dysfunction of the multifidus muscle of lumbar region: Code(s): M62.85 - Dysfunction of the multifidus muscles, lumbar region Category: Medical (3) Chronic back pain: Code(s): M54.9 - Dorsalgia, unspecified; G89.29 - Other chronic pain Category: Medical Qualifiers: Back pain location: low back pain Back pain laterality: midline Sciatica presence: with sciatica Sciatica laterality: sciatica of left side Qualified Code(s): M54.42 - Lumbago with sciatica, left side; G89.29 - Other chronic pain Plan Plan - Confirm the proceeding with a right L3 medial branch nerve stimulation procedure this . - Discussed stopping Eliquis before the procedure and its restart. - Monitor and assess the effectiveness post-procedure to potentially reduce or discontinue duloxetine. - Consider radiofrequency ablation as an alternative if the patient does not want nerve stimulator. Patient was informed and verbally consented to the use of an ambient scribe for clinic note documentation during this visit. Discussion Notes We discussed the planned right L3 medial branch nerve stimulator placement thoroughly. I emphasized its utility in managing chronic low back pain and its potential to reduce or eliminate the need for duloxetine post-procedure. I explained the procedural details, including anesthetic management and post-operative care. The patient was informed about the procedure being minimally invasive with a low risk of nerve damage, based on personal experience. Alternatives such as radiofrequency ablation were discussed. The patient expressed concern about insurance coverage, which is currently unknown due to the novel nature of the procedure. Detailed instructions were given regarding anticoagulation management, specifically with Eliquis. The patient understands the need to cease Eliquis prior to surgery and when to restart post-procedure. The patient was given reassurance regarding sleeping positions post-procedure and instructed on how to manage the device. We will address any additional questions on the day of the procedure and ensure he is fully comfortable with the steps moving forward. Patient Instructions - Discontinue Eliquis before the procedure as directed and resume on evening. - You may continue the baby aspirin as directed starting today. - Proceed with the nerve stimulator procedure scheduled for . - Avoid using Biofreeze cream near the procedure site. - If the duloxetine is not effective, consider stopping it after discussing with me. - Monitor for any signs of infection or complications after the procedure and report them. - Rest as needed and follow post-procedure care instructions provided on . Coding Level of Care Code Est Pt Level 3 (49317) Diagnoses Lumbar spondylosis M47.816 Dysfunction of the multifidus muscle of lumbar region M62.85 Chronic midline low back pain with left-sided sciatica M54.42; G89.29 Back pain location: low back pain Back pain laterality: midline Sciatica presence: with sciatica Sciatica laterality: sciatica of left side
[2025-01-04 13:02] VITALS: BP 135/78; PULSE 63; RESP 16; O2SAT 99; BMI 28.6
--- OUTSIDE RECORDS SUMMARY | 2025-01-04 14:14 | XMS_ITS | Clinical Summary ---
Author Organization [facility] Address [address] [place] [phone] Care Team Providers Care Segmental Paver Installer Name Role Phone Callum Wolff MD Primary Care Provider [phone] Social History Tobacco Use Types Packs/Day Years Used Date Smoking Tobacco: Never Assessed Sex and Gender Information Value Date Recorded Sex Assigned at Not on file Gender Identity Not on file Sexual Orientation Not on file Obstetrics History Plan of Treatment Health Maintenance Due Date Last Done Comments DTaP,Tdap,and Td Vaccines (1 - Tdap) 1967 Zoster Vaccines (1 of 2) 1998 Pneumococcal Vaccine: 65+ Ye ars (1 of 1 - PCV) 2013 RSV Immunization Patients 60 + Years Old (1 - 1-dose 75+ series) 2023 Cholesterol Screening (Lipid Panel) 07/21/2024 Depression Screening 07/21/2024 Falls Risk Assessment 07/21/2024 Hepatitis C Screening 07/21/2024 Social Influencers of Health Screening 07/21/2024 COVID-19 Vaccine ( - 2023-2 5 season) 2024 Influenza Vaccine (#1) 2024 HIB Vaccines Aged Out No longer eligi ble based on patient's age to complete this topic HPV Vaccines Aged Out No longer eligi ble based on patient's age to complete this topic Hepatitis A Vaccines Aged Out No long er eligible based on patient's age to complete this topic Hepatitis B Vaccines Aged Out No long er eligible based on patient's age to complete this topic IPV Vaccines Aged Out No longer eligi ble based on patient's age to complete this topic MMR Vaccines Aged Out No longer eligi ble based on patient's age to complete this topic Meningococcal ACWY Vaccine Aged Out N o longer eligible based on patient's age to complete this topic RSV Immunization Patients Un petrona 20 months Aged Out No longer eligible b ased on patient's age to complete this topic Varicella Vaccines Aged Out No longer eligible based on patient's age to complete this topic Care Teams Segmental Paver Installer Relationship Specialty Start Date End Date Callum Wolff MD [address] [place] [address] PCP - General 03/09/24
--- OUTSIDE RECORDS SUMMARY | 2025-01-04 14:14 | XMS_ITS | Clinical Summary ---
Author Organization [facility] Address [address] [place] [address] Care Team Providers Care Policy Writer Sales Name Role Phone Callum Wolff MD Primary Care Provider [phone] Medications Medication Sig Dispensed Refills Start Date End Date Status oxyCODONE (ROXICODONE) 5 MG immediate release tablet Take 1 tablet (5 mg total) by mouth every 6 (six) hours as needed. 12 tablet 0 03/09/2024 Active Active Problems No known active problems Social History Tobacco Use Types Packs/Day Years Used Date Smoking Tobacco: Never Assessed Sex and Gender Information Value Date Recorded Sex Assigned at Male 03/09/2024 8:11 PM EDT Gender Identity Not on file Sexual Orientation Not on file Job Start Date Occupation Industry Not on file Not on file Not on file Last Filed Vital Signs Vital Sign Reading Time Taken Comments Blood Pressure 115/80 03/10/2024 12:09 AM EDT Pulse 75 03/10/2024 12:09 AM EDT Temperature 36.7 ??C (98 ??F) 03/10/2024 12:09 AM EDT Respiratory Rate 16 03/10/2024 12:09 AM EDT Oxygen Saturation 98% 03/10/2024 12:09 AM EDT Inhaled Oxygen Concentration - - Weight - - Height - - Body Mass Index - - Plan of Treatment Health Maintenance Due Date Last Done Comments Hepatitis C Screening 1948 COVID-19 Vaccine (#1) 03/16/1949 Depression Screening 1960 Preventative Health Evaluation 1966 DTap / Tdap / Td (1 - Tdap) 1967 Shingrix-Zoster Vaccine (1 of 2) 1998 Fall Risk Assessment 2013 Pneumococcal Vaccine (1 of 1 - PCV) 2013 RSV Adult > 60+ Yrs or Pregn ant (1 - 1-dose 75+ series) 2023 Influenza Vaccine (#1) 2024 Hepatitis B Vaccines Aged Out No long er eligible based on patient's age to complete this topic RSV Ped < 20 months Aged Out No longe r eligible based on patient's age to complete this topic Care Teams Policy Writer Sales Relationship Specialty Start Date End Date Callum Wolff MD [address] [place] [id number] PCP - General Internal Medicine 03/09/24
== END 2025-01-04 13:21 | disposition home or self-care (01) ==
PROVIDERS: PCP Internal Medicine; Visit Provider Internal Medicine
DX: M47.816 Spondylosis without myelopathy or radiculopathy, lumbar region (principal); M62.85 Dysfunction of the multifidus muscles, lumbar region; M54.42 Lumbago with sciatica, left side; G89.29 Other chronic pain
CPT/HCPCS: 99213

== ENCOUNTER → 2025-01-04 12:54 | Outpatient (BNVA) | payer MEDICARE, BC, SELFPAY | PROVIDERS: PCP Internal Medicine; Visit Provider Internal Medicine | DX: M47.816 Spondylosis without myelopathy or radiculopathy, lumbar region (principal); M62.85 Dysfunction of the multifidus muscles, lumbar region; M54.42 Lumbago with sciatica, left side; G89.29 Other chronic pain | CPT/HCPCS: 99212 ==

== ENCOUNTER 2025-01-07 06:39 | Outpatient (REF) | payer MEDICARE, BC, SELFPAY ==
--- OUTSIDE RECORDS SUMMARY | 2025-01-07 06:41 | XMS_ITS | Clinical Summary ---
Author Organization [facility] Address [id number] [place] [phone] Care Team Providers Care Terrazzo Tile Maker Name Role Phone Callum Wolff MD Primary Care Provider [phone] Social History Tobacco Use Types Packs/Day Years [...] age to complete this topic Care Teams Terrazzo Tile Maker Relationship Specialty Start Date End Date Callum Wolff MD [address] [place] [address] PCP - General 03/09/24
--- OUTSIDE RECORDS SUMMARY | 2025-01-07 06:41 | XMS_ITS | Clinical Summary ---
Author Organization [facility] Address [address] [place] [address] Care Team Providers Care Helper Chicken Farm Name Role Phone Callum Wolff MD Primary Care Provider [phone] Medications Medication Sig Dispensed Refills Start Date [...] age to complete this topic Care Teams Helper Chicken Farm Relationship Specialty Start Date End Date Callum Wolff MD [address] [place] [phone] PCP - General Internal Medicine 03/09/24
== END 2025-01-07 06:40 | disposition home or self-care (01) ==
LOC: CF 06:39
PROVIDERS: Visit Provider Internal Medicine
DX: Z13.89 Encounter for screening for other disorder (principal)

== ENCOUNTER 2025-01-28 06:31 | Outpatient (REF) | payer MEDICARE, BC, SELFPAY ==
--- NOTE | ~2025-01-28 | FL_ITS ---
EXAMINATION: FL GUIDANCE ONLY HISTORY: M47.816 - Spondylosis without myelopathy or radiculopathy, lumbar region COMPARISON: None available. TECHNIQUE: Fluoroscopy time: 0.1 minutes. Cumulative Dose: 2.60 mGy. DAP: 0.0133 mGym2 Images: 2. FINDINGS: AP and lateral fluoroscopic spot films of the spine are submitted. It is not possible to determine the level based on these images. FL/FL guidance in treatment room IMPRESSION: Fluoroscopy during procedure. Please see procedure report for additional information. Electronically signed by: Pankaj Otto MD 01/28/2025 11:27 AM REFUGIO
--- OUTSIDE RECORDS SUMMARY | 2025-01-28 06:35 | XMS_ITS | Clinical Summary ---
Author Organization [facility] Address [address] [place] [address] Care Team Providers Care Senior Physician Name Role Phone Callum Wolff MD Primary Care Provider [phone] Medications Medication Sig Dispensed Refills Start Date [...] age to complete this topic Care Teams Senior Physician Relationship Specialty Start Date End Date Callum Wolff MD [address] [place] [id number] PCP - General Internal Medicine 03/09/24
--- OUTSIDE RECORDS SUMMARY | 2025-01-28 06:35 | XMS_ITS | Continuity of Care Document ---
Author Organization [facility] Address [facility] [place] [address]- Care Team Providers Care Director Of Music Therapy Name Role Phone Mariella DIAS, Callum Zapata Primary Care Physician Encounter [facility] [place] Date(s): 12/23/24 - 01/22/25 [facility] [address] [place] [address] Encounter Type: Triage Allergies, Adverse Reactions, Alerts Substance Criticality Severity Reaction Reaction Severity Status Flagyl Active Adhesive Bandage Unable to assess criticality Persistent Mild rash Active amLODIPine swelling of hands and legs Active MetroNIDAZOLE Benzoate Active Pramipexole Dihydrochloride Active Immunizations Given and Recorded Vaccine Date [...] Refills, Maintenance, 11/22/20 3:16:00 PM EST, Tablet, [facility], Partial fill upon patient [...] Refills, Maintenance, 10/22/18 2:59:34 PM EST, Tablet, [facility] Start Date: 10/22/18 Status: Ordered Quantity: 25.0 Unit: tablet Repeat number: 4 rosuvastatin 5 mg oral tablet 1 tablet, By Mouth, Daily, # 90 tablet, 3 Refills, Maintenance, 11/02/24 12:28:00 PM EST, [facility], 168, cm, 09/25/24 10:25:00 EDT, Height, 77, kg, 10/23/23 23:03:00 EST, Dry Weight Start Date: 11/02/24 Status: Ordered Quantity: 90.0 Unit: tablet Repeat number: 4 Toprol XL 50 mg oral tablet, extended release 50 mg, 1, tablet, By Mouth, 2 times a day, # 180 tablet, Refills 3, Tot. Refills 3, Maintenance, 11/02/24 12:28:00 PM EST, Route to Pharmacy Electronically, [facility], Partial fill upon patient request [...] Care Team Personnel Name: Zuleika Peralta Position: [facility] RN Supv Member Role: Primary Care Nurse Name: Radha Kirkland RN Position: [facility] RN Member Role: Primary Care Nurse Name: Genny Nagy RN Position: [facility] ED RN W/OE and Tasks Member Role: Primary Care Nurse Name: Callum Wolff MD Position: [facility] Physician - Primary Care Member Role: PCP Address: [address] [place] [address] Telecom: Name: Marely Hyman RN Position: [facility] RN Member Role: Primary Care Nurse Care Team Related Persons Name: JULIO ROGEL Insurance Providers Guarantor name: JUAN JOSE CHRISSIsis Health Plan Information #: 1 Payer: MEDICARE PART B OUTPT Member Number: NA Policy Number: NA Group Number: NA Health Plan Information #: 2 Payer: BLUE MEDICARE SUPPL Member Number: NA Policy Number: NA Group Number: NA
--- OUTSIDE RECORDS SUMMARY | 2025-01-28 06:35 | XMS_ITS | Clinical Summary ---
Author Organization [facility] Address [address] [place] [phone] Care Team Providers Care Slaughterer Religious Ritual Name Role Phone Callum Wolff MD Primary Care Provider [phone] Social History Tobacco Use Types Packs/Day Years Used Date Smoking Tobacco: Never Assessed Sex and Gender Information Value Date Recorded Sex Assigned at Not on file Legal Sex Male 9:54 PM EST Gender Identity Not on file Sexual Orientation Not on file Obstetrics History Plan of Treatment Health Maintenance Due Date Last Done Comments DTaP,Tdap,and Td Vaccines (1 - Tdap) 1967 Pneumococcal Vaccine: 50+ Ye ars (1 of 1 - PCV) 1998 Zoster Vaccines (1 of 2) 1998 RSV Immunization Patients 60 + Years Old [...] patient's age to complete this topic Meningococcal B Vacine Aged Out No lo nger eligible based on patient's age to complete this topic RSV Immunization Patients Un petrona 20 months Aged Out No longer eligible b ased on patient's age to complete this topic Varicella Vaccines Aged Out No longer eligible based on patient's age to complete this topic Care Teams Slaughterer Religious Ritual Relationship Specialty Start Date End Date Callum Wolff MD [address] [place] [address] PCP - General 03/09/24
== END 2025-01-28 06:32 | disposition home or self-care (01) ==
LOC: CF 06:31
PROVIDERS: Visit Provider Internal Medicine
DX: M47.816 Spondylosis without myelopathy or radiculopathy, lumbar region (principal); M62.85 Dysfunction of the multifidus muscles, lumbar region; M54.42 Lumbago with sciatica, left side; G89.29 Other chronic pain
CPT/HCPCS: 64555; C1778; J2003

== ENCOUNTER 2025-01-28 09:41 | Outpatient (AMB) | payer MEDICARE, BC, SELFPAY ==
--- NOTE | 2025-01-28 09:50 | MHC.OFFVIS ---
Vital Signs 01/28/25 09:51 Height 5 ft 6 in Weight 177 lb BMI 28.6 BP 142/74 H Blood Pressure Location Lt brachial Position Sitting Pulse 71 Pulse Source Pulse Oximeter Pulse Oximetry (%) 99 Oxygen Delivery Method Room Air Intake Visit Reasons: Right L3 Sprint Training Consultant Required: No Allergies pramipexole Allergy (Severe, Verified 01/28/25 09:52) Swelling metronidazole Adverse Reaction (Severe, Verified 01/28/25 09:52) Rash Medication List - Last Reconciled 01/28/25 by Amelia Carter, [employer] apixaban (Eliquis) 5 mg PO BID aspirin (Adult Low Dose Aspirin) 81 mg PO DAILY carbidopa-levodopa 25-100 mg (Sinemet) 2 tabs PO TID carbidopa-levodopa 50-200 mg ER 1 tab PO BEDTIME citalopram 10 mg PO DAILY coenzyme Q10 200 mg PO DAILY duloxetine (Cymbalta) 30 mg PO DAILY melatonin 5 mg PO BEDTIME PRN metformin 500 mg PO DAILY metoprolol succinate ER 50 mg PO BID mirabegron ER (Myrbetriq) 25 mg PO DAILY nitroglycerin 0.4 mg sublingual Q5M PRN rasagiline (Azilect) 1 mg PO DAILY rosuvastatin 5 mg PO DAILY HPI HPI Right L3 Sprint: Details: Patient presents for scheduled procedure. Denies any recent cough, cold, infection, fever or other significant changes in medical history since last office visit. [facility] Medical History Chronic back pain Parkinson's disease with dyskinesia and fluctuating manifestations Depression Parkinson's Disease Hyperlipidemia HTN (hypertension) Heart disease Angina at rest STEMI (ST elevation myocardial infarction) Myocardial infarction Surgical History History of cataract surgery Hx of cholecystectomy Family History Mother COPD (chronic obstructive pulmonary disease) Father Hepatitis Social History Alcohol intake: never Patient Tobacco Use Status: Never used Tobacco Physical Exam Vital Signs: Last Vital Signs Pulse 71 01/28/25 09:51 BP 142/74 H 01/28/25 09:51 Pulse Ox 99 01/28/25 09:51 Oxygen Delivery Method Room Air 01/28/25 09:51 BMI result Body Mass Index 28.6 Office Procedures Details: Lumbar Medial Branch Nerve Stimulation Lead Placement, SPR (Sprint) System, Right L3 ? After the risks, benefits and alternatives were discussed with the patient and informed consent was obtained, patient was placed in the prone position and padded to foster comfort. The skin overlying the lumbosacral spine was prepped and draped in sterile fashion. Fluoroscopy was used to identify the spinous process and lamina in the center of the patient?s region of pain. After identifying and marking the intended target along the course of the medial branch nerve, the skin around the planned entry point and the subcutaneous tissues were injected with lidocaine 1%. An introducer needle and stimulating probe were assembled, inserted and advanced along the intended course of the medial branch nerve as it traverses the lamina medial and inferior to the zygapophyseal joint, taking care to maintain the proper depth of insertion as the introducer is advanced under fluoroscopic guidance. The introducer needle was delivered to a location in proximity to the nerve. Multiple stimulation parameters were used to deliver stimulation to the target medial branch nerve in concert with stimulating at multiple positions around the nerve. Nerve target acquisition was confirmed noting generation of paresthesias in the paravertebral regions corresponding to the level being stimulated. Various electrical parameter combinations were tested, and the lead location was adjusted (physically relocated) until the patient indicated paresthesia/muscle tension overlapping the distribution of the patient?s typical region of pain. The stimulating probe was removed from the introducer and a percutaneous lead was guided through the needle and delivered to a location in similar proximity to the nerve. Final location was verified with electrical stimulation and documented with fluoroscopy. The introducer needle was removed, and the exposed end of the percutaneous lead was attached to an external stimulator unit. Various electrical parameter combinations were again tested until the patient indicated paresthesia or muscle tension overlapping the distribution of the patient?s typical region of pain. After confirming that lead impedance was in the normal range, the external unit was detached, the needle was removed, and the lead was anchored at the skin. The lead was threaded into the connector block and electrical continuity and desired patient response was confirmed. The connector block was attached to the external stimulator unit. The site was covered with a sterile occlusive dressing. The patient was observed for stability of vital signs and comfort. Sprint PNS Device: Sprint PNS Device [id number] Percutaneous Peripheral Neuroelectrode Procedure: 54897 - Percutaneous Peripheral Neuroelectrode Procedure code (CPT) selection complete Office Meds lidocaine HCl 10 mg/mL (1 %) injection solution Performing Provider: Maddie Ramirez APRN, [facility] Performing Location: [facility] Administered by: Nasreen Rosas LPN on 01/28/25 10:05 Dose Route Admin Location Dispensed Lot Number Expiration Date ND Print Washer 1 mL subcut 5 mL Assessment & Plan Assessment & Plan (1) Lumbar spondylosis: Code(s): M47.816 - Spondylosis without myelopathy or radiculopathy, lumbar region Category: Medical (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 Patient tolerated procedure well and was discharged home in stable condition with discharge instructions. All questions were answered. We will follow-up via telephone or in clinic to assess response to therapy. A follow-up appointment was made during today's visit. Orders: Orders FL guidance in treatment room Today M47.816 - Spondylosis without myelopathy or radiculopathy, lumbar region AMB Sprint PNS Today M47.816 - Spondylosis without myelopathy or radiculopathy, lumbar region Coding Level of Care Code Procedure Only Diagnoses Lumbar spondylosis M47.816 Dysfunction of the multifidus muscle of lumbar region M62.85 Chronic midline low back pain with left-sided sciatica M54.42; G89.29 Back pain location: low back pain Back pain laterality: midline Sciatica presence: with sciatica Sciatica laterality: sciatica of left side CPT Codes Sprint PNS - Sprint PNS Device: Sprint PNS Device ([id number]) Sprint PNS - SPRINT: 07557 - Percutaneous Peripheral Neuroelectrode ([id number]) Implantable Device Implantable Device Implantable Devices Qty Print Washer Implant Date Expiration Date Analgesic PENS system 1 [facility] [employer] INC[employer]et 01/28/25 08/17/26
[2025-01-28 09:51] VITALS: BP 142/74; PULSE 71; O2SAT 99; BMI 28.6
--- OUTSIDE RECORDS SUMMARY | 2025-01-28 11:04 | XMS_ITS | Clinical Summary ---
Author Organization [facility] Address [address] [place] [address] Care Team Providers Care Pre School Manager Name Role Phone Callum Wolff MD Primary Care Provider [phone] Medications Medication Sig Dispensed Refills Start Date [...] age to complete this topic Care Teams Pre School Manager Relationship Specialty Start Date End Date Callum Wolff MD [address] [place] [phone] PCP - General Internal Medicine 03/09/24
--- OUTSIDE RECORDS SUMMARY | 2025-01-28 11:04 | XMS_ITS | Clinical Summary ---
Author Organization [facility] Address [address] [place] [phone] Care Team Providers Care Technical Specialist Cytology Name Role Phone Callum Wolff MD Primary Care Provider [phone] Social History Tobacco Use Types Packs/Day Years [...] age to complete this topic Care Teams Technical Specialist Cytology Relationship Specialty Start Date End Date Callum Wolff MD [address] [place] [address] PCP - General 03/09/24
== END 2025-01-28 10:41 | disposition home or self-care (01) ==
LOC: HO.PMCPRC 09:41
PROVIDERS: PCP Internal Medicine; Visit Provider Internal Medicine
DX: M47.816 Spondylosis without myelopathy or radiculopathy, lumbar region (principal); M62.85 Dysfunction of the multifidus muscles, lumbar region; M54.42 Lumbago with sciatica, left side; G89.29 Other chronic pain
CPT/HCPCS: 64555

== ENCOUNTER 2025-02-01 09:21 | Outpatient (AMB) | payer MEDICARE, BC, SELFPAY ==
--- NOTE | 2025-02-01 09:26 | MHC.OFFVIS ---
Vital Signs 02/01/25 09:27 BP 135/72 Blood Pressure Location Lt brachial Position Sitting Pulse 61 Pulse Source Pulse Oximeter Pulse Oximetry (%) 98 Oxygen Delivery Method Room Air Intake Visit Reasons: s/p right L3 Sprint Intake Note: 310 pain today Allergies pramipexole Allergy (Severe, Verified 02/01/25 09:32) Swelling metronidazole Adverse Reaction (Severe, Verified 02/01/25 09:32) Rash Medication List - Last Reconciled 02/01/25 by Aurelia Ordoñez LPN apixaban (Eliquis) 5 mg PO BID aspirin (Adult Low Dose Aspirin) 81 mg PO DAILY carbidopa-levodopa 25-100 mg (Sinemet) 2 tabs PO TID carbidopa-levodopa 50-200 mg ER 1 tab PO BEDTIME citalopram 10 mg PO DAILY coenzyme Q10 200 mg PO DAILY duloxetine (Cymbalta) 30 mg PO DAILY melatonin 5 mg PO BEDTIME PRN metformin 500 mg PO DAILY metoprolol succinate ER 50 mg PO BID mirabegron ER (Myrbetriq) 25 mg PO DAILY nitroglycerin 0.4 mg sublingual Q5M PRN rasagiline (Azilect) 1 mg PO DAILY rosuvastatin 5 mg PO DAILY HPI HPI s/p right L3 Sprint: Details: History of Present Illness The patient is a 74-year-old male presenting for a follow-up after the placement of a right T3 medial branch temporary nerve stimulator designed to manage chronic axial lower back pain. He initially suffered from persistent pain that significantly affected his quality of life. The nerve stimulator was placed to address this condition, and at this visit, the patient reports an improvement in symptoms and expresses satisfaction with the decision to proceed with the procedure. He has been adjusting the intensity of the stimulator to manage pain effectively and reports no significant side effects from the device. Minor oozing was observed at the stimulator site, but it was considered non-problematic, and the skin appears intact. The reduction in pain and improved functionality reflects positively on the effectiveness of the intervention. Pain Description - Onset: Chronic low back pain, ongoing. - Quality and Character: Persistent axial lower back pain. - Primary Location: Right lower back (right T3). - Radiation: Not explicitly discussed. - Intensity Adjustments: Patient has been adjusting the intensity occasionally. - Relieving Factors: Nerve stimulation has contributed to a reduction in pain. - Aggravating Factors: Not explicitly discussed. - Interference: Impacted daily activities prior to the intervention, now improving. Physical Exam - Skin- Minor oozing observed at the lead insertion site; no significant bleeding or complications noted. - Neurological- The site of nerve stimulation is clean, dry, and intact with a well-secured dressing. Results Pain Management - Affect: Pain has improved post-nerve stimulator placement; no signs of mood impact noted. - Analgesia: Intensity adjustments made for pain control. No mention of additional medication. - Adverse Effects: No significant adverse effects from the device. - Activities of Daily Living: Improved functionality in daily activities with ongoing nerve stimulation therapy. - Aberrant Drug Related Behaviors: None reported or observed. [facility] Medical History Chronic back pain Parkinson's disease with dyskinesia and fluctuating manifestations Depression Parkinson's Disease Hyperlipidemia HTN (hypertension) Heart disease Angina at rest STEMI (ST elevation myocardial infarction) Myocardial infarction Surgical History History of cataract surgery Hx of cholecystectomy Family History Mother COPD (chronic obstructive pulmonary disease) Father Hepatitis Social History Alcohol intake: never Patient Tobacco Use Status: Never used Tobacco Physical Exam Vital Signs: Last Vital Signs Pulse 61 02/01/25 09:27 BP 135/72 02/01/25 09:27 Pulse Ox 98 02/01/25 09:27 Oxygen Delivery Method Room Air 02/01/25 09:27 Assessment & Plan Assessment & Plan (1) Lumbar spondylosis: Code(s): M47.816 - Spondylosis without myelopathy or radiculopathy, lumbar region Category: Medical (2) Dysfunction of the multifidus muscle of lumbar region: Code(s): M62.85 - Dysfunction of the multifidus muscles, lumbar region Category: Medical (3) Chronic back pain: Code(s): M54.9 - Dorsalgia, unspecified; G89.29 - Other chronic pain Category: Medical Qualifiers: Back pain location: low back pain Back pain laterality: midline Sciatica presence: with sciatica Sciatica laterality: sciatica of left side Qualified Code(s): M54.42 - Lumbago with sciatica, left side; G89.29 - Other chronic pain Plan Plan The plan for the patient's axial lower back pain involves the continuation of the temporary nerve stimulation therapy. This course will continue for another seven weeks to complete a full 8-week treatment plan. Continued self-monitoring is advised, with the patient encouraged to manage the intensity settings to control pain levels effectively. The patient understands the therapy's trajectory and is satisfied with the improvement in symptoms thus far. Additional support for changing the dressing has been ensured, should it be necessary. Patient was informed and verbally consented to the use of an ambient scribe for clinic note documentation during this visit. Discussion Notes During the discussion, I emphasized the effectiveness of the temporary nerve stimulator in managing the patient's axial lower back pain. I clarified the expectations of sensation reduction over time and advised on adjustments to the stimulation intensity to maintain relief. We discussed the plan to continue therapy for a total of 8 weeks before reevaluating for lead removal. I reassured the patient of the non-concerning nature of minor oozing and instructed him on proper dressing care. The option to seek assistance from nursing staff was offered should dressing changes be problematic. I provided guidance on when to increase the intensity setting and reviewed the importance of monitoring treatment effectiveness and comfort. Patient Instructions - Continue with temporary nerve stimulation therapy for an additional seven weeks. - Adjust stimulator intensity as needed to manage pain. - Change the dressing at home once a week or sooner if it becomes loose or begins to peel. - Avoid washing the stimulator area directly; instead, pat around it with a damp cloth if necessary. - Contact the clinic if there are any issues with the stimulator or if assistance is needed with dressing changes. - Follow up for lead removal after the 8-week course. - Notify the office immediately if there are signs of infection or significant concerns with the device. Coding Level of Care Code Est Pt Level 3 (86740) Diagnoses Lumbar spondylosis M47.816 Dysfunction of the multifidus muscle of lumbar region M62.85 Chronic midline low back pain with left-sided sciatica M54.42; G89.29 Back pain location: low back pain Back pain laterality: midline Sciatica presence: with sciatica Sciatica laterality: sciatica of left side
[2025-02-01 09:27] VITALS: BP 135/72; PULSE 61; O2SAT 98
--- OUTSIDE RECORDS SUMMARY | 2025-02-01 10:11 | XMS_ITS | Clinical Summary ---
Author Organization [facility] Address [address] [place] [address] Care Team Providers Care Casino Accountant Name Role Phone Callum Wolff MD Primary Care Provider [phone] Medications Medication Sig Dispensed Refills Start Date [...] age to complete this topic Care Teams Casino Accountant Relationship Specialty Start Date End Date Callum Wolff MD [address] [place] [id number] PCP - General Internal Medicine 03/09/24
--- OUTSIDE RECORDS SUMMARY | 2025-02-01 10:11 | XMS_ITS | Clinical Summary ---
Author Organization [facility] Address [address] [place] [phone] Care Team Providers Care Materials Supervisor Name Role Phone Callum Wolff MD Primary Care Provider [phone] Social History Tobacco Use Types Packs/Day Years [...] age to complete this topic Care Teams Materials Supervisor Relationship Specialty Start Date End Date Callum Wolff MD [address] [place] [address] PCP - General 03/09/24
== END 2025-02-01 09:52 | disposition home or self-care (01) ==
PROVIDERS: PCP Internal Medicine; Visit Provider Internal Medicine
DX: M47.816 Spondylosis without myelopathy or radiculopathy, lumbar region (principal); M62.85 Dysfunction of the multifidus muscles, lumbar region; M54.42 Lumbago with sciatica, left side; G89.29 Other chronic pain
CPT/HCPCS: 99024

== ENCOUNTER → 2025-02-01 09:22 | Outpatient (BNVA) | payer MEDICARE, BC, SELFPAY | PROVIDERS: PCP Internal Medicine; Visit Provider Internal Medicine | DX: M47.816 Spondylosis without myelopathy or radiculopathy, lumbar region (principal); M62.85 Dysfunction of the multifidus muscles, lumbar region; M54.42 Lumbago with sciatica, left side; G89.29 Other chronic pain | CPT/HCPCS: 99212 ==

== ENCOUNTER 2025-03-16 11:22 | Outpatient (AMB) | payer MEDICARE, BC, SELFPAY ==
--- NOTE | 2025-03-16 11:23 | MHC.OFFVIS ---
Vital Signs 03/16/25 11:24 Height 5 ft 6 in Weight 175 lb BMI 28.2 BP 132/80 Blood Pressure Location Rt brachial Position Sitting Pulse 71 Pulse Source Pulse Oximeter Pulse Oximetry (%) 99 Oxygen Delivery Method Room Air Intake Visit Reasons: 3M Follow Up Intake Note: Patient presents for follow up med trial rasagiline. referral to pain management 12/21/24 Allergies pramipexole Allergy (Severe, Verified 03/16/25 11:24) Swelling metronidazole Adverse Reaction (Severe, Verified 03/16/25 11:24) Rash Medication List - Last Reconciled 03/16/25 by Janice Rushing MD apixaban (Eliquis) 5 mg PO BID aspirin (Adult Low Dose Aspirin) 81 mg PO DAILY carbidopa-levodopa 25-100 mg (Sinemet) 2 tabs PO TID 90 days carbidopa-levodopa 50-200 mg ER 1 tab PO BEDTIME 90 days citalopram 10 mg PO DAILY coenzyme Q10 200 mg PO DAILY duloxetine (Cymbalta) 30 mg PO DAILY empagliflozin (Jardiance) 10 mg PO DAILY melatonin 5 mg PO BEDTIME PRN metoprolol succinate ER 50 mg PO BID mirabegron ER (Myrbetriq) 25 mg PO DAILY nitroglycerin 0.4 mg sublingual Q5M PRN rasagiline (Azilect) 1 mg PO DAILY rosuvastatin 5 mg PO DAILY HPI Comments Details: 74y/o male comes for follow up of parkinsons disease. He has low back pain-was on cortisone shots and now has microlead -stimulation and is helping some days He sees Dr Braun . No falls since last visit.He has some near falls. His tremors are worse and he is slower.but does not affect his ADLs.He is losing balance more often.He is independent in his ADLs.He hasstrouble putting his socks and shoes on. His mood is OK on citalopram. He has dyskinesias . His voice is the same. He still has sleep issues but declines sleep study . He takes melatonin or tylenol PM or belsomra. no falls, no memory issues, no hallucinations He has constipation. . [facility] Medical History Chronic back pain Parkinson's disease with dyskinesia and fluctuating manifestations Depression Parkinson's Disease Hyperlipidemia HTN (hypertension) Heart disease Angina at rest STEMI (ST elevation myocardial infarction) Myocardial infarction Surgical History History of cataract surgery Hx of cholecystectomy Family History Mother COPD (chronic obstructive pulmonary disease) Father Hepatitis Social History Alcohol intake: never Patient Tobacco Use Status: Never used Tobacco Physical Exam Vital Signs: Last Vital Signs Pulse 71 03/16/25 11:24 BP 132/80 03/16/25 11:24 Pulse Ox 99 03/16/25 11:24 Oxygen Delivery Method Room Air 03/16/25 11:24 BMI result Body Mass Index 28.2 Const General: cooperative and no acute distress Nutritional Appearance: average body habitus Orientation/consciousness: patient oriented x3 HEENT Head: Yes normal to inspection Neck Other: mild antecollis and restricted range of motion Neuro Other: Mild decreased blink and facial expression Voice- normal no dyskinesia today left UE rest tremors Fine Finger movements - mild decreased beulah l>R Alternating hand movements - decreased beulah Hand movements - decreased beulah Foot taps- decreased beulah No cog wheel rigidity gait - stooped, mild slowness and decreased arm swing L>R General: patient oriented x3 and no focal motor deficits Cranial nerves: Yes CN's II-XII intact bilaterally, Yes Bilaterally intact EOM present, Yes Normal facial strength present, Yes Midline tongue present and Yes Ability to bilaterally rotate head present Cognition (Neuro): abnormal cognition (repeats questions frequently) Motor exam (neuro): 5/5 motor strength present throughout and Normal motor muscle tone present throughout Coordination: wcatak-on-cmro test normal Psych Mental Status: mental status grossly normal Affect: normal affect Assessment & Plan Assessment & Plan (1) Parkinson's disease with dyskinesia and fluctuating manifestations: Code(s): G20.B2 - Parkinson's disease with dyskinesia, with fluctuations Category: Medical (2) Depression: Code(s): F32.A - Depression, unspecified Category: Medical Qualifiers: Depression Type: other depression Qualified Code(s): F32.89 - Other specified depressive episodes (3) Chronic back pain: Code(s): M54.9 - Dorsalgia, unspecified; G89.29 - Other chronic pain Category: Medical Qualifiers: Back pain location: low back pain Back pain laterality: midline Sciatica presence: with sciatica Sciatica laterality: sciatica of left side Qualified Code(s): M54.42 - Lumbago with sciatica, left side; G89.29 - Other chronic pain Plan Continue azilect 1mg qd Rytary was expensive so he is still on sinemet 25/100 2 tabs tid and sinemet CR 50/200 qhs Citalopram 10 mg qd Tylenol 500mg qhs Continue exercise Discussed sleep hygiene He did not tolerate trihexyphenidyl Medications: Refilled rasagiline (Azilect) 1 mg PO DAILY 90 tabs 6RF citalopram 10 mg PO DAILY 90 tabs 0RF Coding Level of Care Code Est Pt Level 4 (03818) Complex EM visit Add On G2211 Diagnoses Parkinson's disease with dyskinesia and fluctuating manifestations G20.B2 Other depression F32.89 Depression Type: other depression Chronic midline low back pain with left-sided sciatica M54.42; G89.29 Back pain location: low back pain Back pain laterality: midline Sciatica presence: with sciatica Sciatica laterality: sciatica of left side
[2025-03-16 11:24] VITALS: BP 132/80; PULSE 71; O2SAT 99; BMI 28.2
--- OUTSIDE RECORDS SUMMARY | 2025-03-16 14:01 | XMS_ITS | Clinical Summary ---
Author Organization [facility] Address [address] [place] [address] Care Team Providers Care Junior Qa Analyst Name Role Phone Callum Wolff MD Primary Care Provider [phone] Medications Medication Sig Dispensed Refills Start Date [...] age to complete this topic Care Teams Junior Qa Analyst Relationship Specialty Start Date End Date Callum Wolff MD [address] [place] [id number] PCP - General Internal Medicine 03/09/24
--- OUTSIDE RECORDS SUMMARY | 2025-03-16 14:02 | XMS_ITS | Clinical Summary ---
Author Organization [facility] Address [address] [place] [phone] Care Team Providers Care Soda Fountain Clerk Name Role Phone Callum Wolff MD Primary Care Provider [phone] Social History Tobacco Use Types Packs/Day Years [...] Vaccines (1 of 2) 1998 RSV Immunization Adult Patie nts (1 - 1-dose 75+ series) 2023 Cholesterol Screening (Lipid Panel) 07/21/2024 Depression Screening 07/21/2024 Falls Risk Assessment 07/21/2024 Hepatitis C Screening 07/21/2024 Social Influencers of Health Screening 07/21/2024 COVID-19 Vaccine ( - 2023-2 5 season) 2024 Influenza Vaccine (Season Ended) 2025 HIB Vaccines Aged Out No longer eligi [...] age to complete this topic Meningococcal B Vaccine Aged Out No l onger eligible based on patient's age to complete this topic RSV Immunization Patients Un petrona 20 months Aged Out No longer eligible b ased on patient's age to complete this topic Varicella Vaccines Aged Out No longer eligible based on patient's age to complete this topic Care Teams Soda Fountain Clerk Relationship Specialty Start Date End Date Callum Wolff MD [address] [place] [address] PCP - General 03/09/24
== END 2025-03-16 12:02 | disposition home or self-care (01) ==
LOC: HO.HSMS 11:22
PROVIDERS: PCP Internal Medicine; Visit Provider Psychiatry & Neurology Neurology
DX: G20.B2 Parkinson's disease with dyskinesia, with fluctuations (principal); F32.89 Other specified depressive episodes; M54.42 Lumbago with sciatica, left side; G89.29 Other chronic pain
CPT/HCPCS: 99214; G2211

== ENCOUNTER → 2025-03-16 11:22 | Outpatient (BNVA) | payer MEDICARE, BC, SELFPAY | PROVIDERS: PCP Internal Medicine; Visit Provider Psychiatry & Neurology Neurology | DX: G20.B2 Parkinson's disease with dyskinesia, with fluctuations (principal); M54.42 Lumbago with sciatica, left side; G89.29 Other chronic pain; F32.89 Other specified depressive episodes | CPT/HCPCS: 99212 ==

== ENCOUNTER 2025-03-31 10:22 | Outpatient (AMB) | payer MEDICARE, BC, SELFPAY ==
--- NOTE | 2025-03-31 10:28 | A.OFFVIS_ITS ---
Vital Signs 03/31/25 10:30 Height 5 ft 6 in Weight 175 lb BMI 28.2 BP 114/59 L Blood Pressure Location Rt brachial Position Sitting Respiration 16 Pulse 63 Pulse Source Pulse Oximeter Intake Visit Reasons: Sprint removal Intake Note: Sprint lead pulled, intact including the tip Clinic Charge Nurse Required: No Allergies pramipexole Allergy (Severe, Verified 03/31/25 10:31) Swelling metronidazole Adverse Reaction (Severe, Verified 03/31/25 10:31) Rash Medication List - Last Reconciled 03/31/25 by Nasreen Rosas LPN apixaban (Eliquis) 5 mg PO BID aspirin (Adult Low Dose Aspirin) 81 mg PO DAILY carbidopa-levodopa 25-100 mg (Sinemet) 2 tabs PO TID 90 days carbidopa-levodopa 50-200 mg ER 1 tab PO BEDTIME 90 days citalopram 10 mg PO DAILY coenzyme Q10 200 mg PO DAILY duloxetine (Cymbalta) 30 mg PO DAILY empagliflozin (Jardiance) 10 mg PO DAILY melatonin 5 mg PO BEDTIME PRN metoprolol succinate ER 50 mg PO BID mirabegron ER (Myrbetriq) 25 mg PO DAILY nitroglycerin 0.4 mg sublingual Q5M PRN rasagiline (Azilect) 1 mg PO DAILY rosuvastatin 5 mg PO DAILY HPI HPI Sprint removal: Details: History of Present Illness The patient is a 74-year-old male presenting with chronic pain management concerns. The patient has been dealing with significant pain attributed to arthritis and tendinopathy in his right shoulder, despite previous cortisone injections. These injections provided little relief, and the shoulder pain returned quickly. The patient also reports chronic back pain, which initially responded to cortisone injections, though the benefits did not sustain beyond about five to six weeks. The resurgence of pain has led to the use of [id number] analgesics like Tylenol. He experiences exacerbated pain symptoms during weather changes and when sitting or standing for prolonged periods. Pain Description - Onset and timing: Shoulder and back pain, chronic with exacerbations - Quality and character: Deep, aching - Primary location: Right shoulder and lower back - Radiation: Pain intensity increases with weather changes, particularly rain - Exacerbating factors: Prolonged sitting or standing, weather changes - Relieving factors: Cortisone injections provided initial relief; currently using Tylenol Physical Exam - Musculoskeletal- Pain noted on movement of the right shoulder, particularly abduction; tenderness present in the lower back without specified localization Pain Management - Affect: Patient perceives pain affecting his daily activities and contributing to discomfort during weather changes - Analgesia: Uses Tylenol recently due to resurgence of pain; cortisone injections temporarily effective - Adverse Effects: No specific mention of side effects from medications - Activities of Daily Living: Pain impairs ability to remain standing or seated for extended periods, interferes slightly with daily activities - Aberrant Drug Related Behaviors: No aberrant drug-related behaviors reported or observed [facility] Medical History Chronic back pain Parkinson's disease with dyskinesia and fluctuating manifestations Depression Parkinson's Disease Hyperlipidemia HTN (hypertension) Heart disease Angina at rest STEMI (ST elevation myocardial infarction) Myocardial infarction Surgical History History of cataract surgery Hx of cholecystectomy Family History Mother COPD (chronic obstructive pulmonary disease) Father Hepatitis Social History Alcohol intake: never Patient Tobacco Use Status: Never used Tobacco Physical Exam Vital Signs: Last Vital Signs Pulse 63 03/31/25 10:30 Resp 16 03/31/25 10:30 BP 114/59 L 03/31/25 10:30 BMI result Body Mass Index 28.2 Assessment & Plan Assessment & Plan (1) Right shoulder pain: Code(s): M25.511 - Pain in right shoulder Category: Medical Plan Plan - Arrange for an x-ray to evaluate the shoulder condition thoroughly - Consider an ultrasound-guided cortisone injection for the shoulder to improve pain control - Reassess back pain without additional interventions in the immediate month; focus on symptomatic relief with Tylenol as needed - Maintain vigilance regarding the frequency of injections in both shoulder and back, limiting them to appropriate intervals Patient was informed and verbally consented to the use of an ambient scribe for clinic note documentation during this visit. Discussion Notes In my conversation with the patient, we reviewed the current status of the shoulder and back pain. I explained the potential benefits of using ultrasound guidance for future cortisone injections to improve precision and effectiveness in terms of reducing inflammation and alleviating pain. I advised limiting corticosteroid injections to once a year to mitigate the risk of secondary complications. For his chronic conditions, a shoulder x-ray has been ordered to further evaluate any degenerative changes. We discussed continuing to monitor back pain without additional interventions, permitting time to see if there is a natural course of improvement or worsening over the next month. I encouraged patience and attention to any changes in symptomatology, and the patient was agreeable to follow the proposed plan. Patient Instructions - Proceed with the shoulder x-ray as scheduled - Plan ahead for the ultrasound-guided injection; schedule and keep the appointment - Use Tylenol as needed for current pain relief - Monitor symptoms and note any changes in pain or function - Avoid frequent injections and pursue them only as planned - Follow up in the prescribed timeline for continued assessment and management Orders: Orders XR shoulder RT min 2V 03/31/25 M25.511 - Pain in right shoulder Coding Level of Care Code Est Pt Level 3 (57503) Diagnoses Right shoulder pain M25.511
[2025-03-31 10:30] VITALS: BP 114/59; PULSE 63; RESP 16; BMI 28.2
--- OUTSIDE RECORDS SUMMARY | 2025-03-31 11:42 | XMS_ITS | Clinical Summary ---
Author Organization [facility] Address [id number] [place] [phone] Care Team Providers Care Transfer Engineer Name Role Phone Callum Wolff MD Primary Care Provider [phone] Social History Tobacco Use Types Packs/Day Years [...] age to complete this topic Care Teams Transfer Engineer Relationship Specialty Start Date End Date Callum Wolff MD [address] [place] [address] PCP - General 03/09/24
--- OUTSIDE RECORDS SUMMARY | 2025-03-31 11:42 | XMS_ITS | Clinical Summary ---
Author Organization [facility] Address [address] [place] [address] Care Team Providers Care Pharmacist Aide Name Role Phone Callum Wolff MD Primary Care Provider [phone] Medications Medication Sig Dispensed Refills Start Date [...] age to complete this topic Care Teams Pharmacist Aide Relationship Specialty Start Date End Date Callum Wolff MD [address] [place] [phone] PCP - General Internal Medicine 03/09/24
== END 2025-03-31 11:31 | disposition home or self-care (01) ==
LOC: HO.PMC 10:22
PROVIDERS: PCP Internal Medicine; Visit Provider Internal Medicine
DX: M25.511 Pain in right shoulder (principal)
CPT/HCPCS: 99213

== ENCOUNTER 2025-03-31 10:22 | Outpatient (REF) | payer MEDICARE, BC, SELFPAY ==
--- NOTE | ~2025-03-31 | XR_ITS ---
EXAMINATION: XR SHOULDER 2 OR MORE VIEWS RIGHT HISTORY: M25.511 - Pain in right shoulder COMPARISON: There are no prior studies available for comparison. FINDINGS: Four views of the right shoulder are submitted. Osseous mineralization is normal. There is no fracture or dislocation. There is moderate osteoarthritis of the glenohumeral joint, with joint space narrowing and osteophyte formation. The AC joint space is preserved. There are soft tissue calcifications adjacent to the greater tuberosity of the humerus which are likely to the rotator cuff. XR/XR shoulder RT min 2V IMPRESSION: Moderate degenerative change of the glenohumeral joint. Probable rotator cuff calcifications. Electronically signed by: Pankaj Otto MD 04/02/2025 07:56 AM EDT
--- OUTSIDE RECORDS SUMMARY | 2025-03-31 13:00 | XMS_ITS | Clinical Summary ---
Author Organization [facility] Address [address] [place] [phone] Care Team Providers Care Instrument Maintenance Supervisor Name Role Phone Callum Wolff MD Primary Care Provider [phone] Social History Tobacco Use Types Packs/Day Years [...] age to complete this topic Care Teams Instrument Maintenance Supervisor Relationship Specialty Start Date End Date Callum Wolff MD [address] [place] [address] PCP - General 03/09/24
--- OUTSIDE RECORDS SUMMARY | 2025-03-31 13:00 | XMS_ITS | Clinical Summary ---
Author Organization [facility] Address [address] [place] [address] Care Team Providers Care Network Coordinator Name Role Phone Callum Wolff MD Primary Care Provider [phone] Medications Medication Sig Dispensed Refills Start Date [...] age to complete this topic Care Teams Network Coordinator Relationship Specialty Start Date End Date Callum Wolff MD [address] [place] [phone] PCP - General Internal Medicine 03/09/24
== END 2025-03-31 10:23 | disposition home or self-care (01) ==
LOC: HO.XRAY 10:22
PROVIDERS: PCP Internal Medicine; Visit Provider Internal Medicine
DX: M25.511 Pain in right shoulder (principal); M19.011 Primary osteoarthritis, right shoulder
CPT/HCPCS: 73030; 99212

== ENCOUNTER → 2025-03-31 11:30 | Outpatient (BNV) | payer MEDICARE, BC, SELFPAY | PROVIDERS: PCP Internal Medicine; Visit Provider Radiology Diagnostic Radiology | DX: M19.011 Primary osteoarthritis, right shoulder (principal) | CPT/HCPCS: 73030 ==

== ENCOUNTER 2025-07-19 11:10 | Outpatient (AMB) | payer MEDICARE, BC, SELFPAY ==
[2025-07-19 11:28] VITALS: BP 102/64; PULSE 64; O2SAT 98; BMI 27.1
--- NOTE | 2025-07-19 11:28 | A.OFFVIS_ITS ---
Vital Signs 07/19/25 11:28 Height 5 ft 6 in Weight 168 lb 2 oz BMI 27.1 BP 102/64 Blood Pressure Location Lt brachial Position Sitting Pulse 64 Pulse Source Pulse Oximeter Pulse Oximetry (%) 98 Oxygen Delivery Method Room Air Intake Visit Reasons: 4mon follow-up Intake Note: Patient presents 4 month follow up for Parkinson's [employer] Required: No Accompanied by: Spouse Allergies pramipexole Allergy (Severe, Verified 07/19/25 11:33) Swelling metronidazole Adverse Reaction (Severe, Verified 07/19/25 11:33) Rash Medication List - Last Reconciled 07/19/25 by Janice Rushing MD apixaban (Eliquis) 5 mg PO BID aspirin (Adult Low Dose Aspirin) 81 mg PO DAILY carbidopa-levodopa 25-100 mg (Sinemet) 2 tabs PO TID 90 days carbidopa-levodopa 50-200 mg ER 1 tab PO BEDTIME 90 days citalopram 10 mg PO DAILY coenzyme Q10 200 mg PO DAILY duloxetine (Cymbalta) 30 mg PO DAILY melatonin 5 mg PO BEDTIME PRN metformin 500 mg PO DAILY metoprolol succinate ER 50 mg PO BID mirabegron ER (Myrbetriq) 25 mg PO DAILY nitrofurantoin mg PO nitroglycerin 0.4 mg sublingual Q5M PRN rasagiline (Azilect) 1 mg PO DAILY rosuvastatin 5 mg PO DAILY HPI Comments Details: 74y/o male comes for follow up of parkinsons disease. Hi did not have a good summer due to UTI - sepsis . He was hospitalized for a few days. He was discharged June 07 He reports feeling tired difficult to stay asleep- 2 falls since last visit which they think it is related to Jardiance.Diabetes not well controlled His back pain - managed by pain management His tremors are worse and he is slower.but does not affect his ADLs.He is losing balance more often.He is independent in his ADLs.He hasstrouble putting his socks and shoes on. His mood is not as good since his hopsitalizations on citalopram. He has dyskinesias . His voice is the same. . He takes melatonin or tylenol PM or belsomra. no memory issues, no hallucinations He has constipation. . [facility] Medical History Chronic back pain Parkinson's disease with dyskinesia and fluctuating manifestations Depression Parkinson's Disease Hyperlipidemia HTN (hypertension) Heart disease Angina at rest STEMI (ST elevation myocardial infarction) Myocardial infarction Surgical History History of cataract surgery Hx of cholecystectomy Family History Mother COPD (chronic obstructive pulmonary disease) Father Hepatitis Social History Alcohol intake: never Patient Tobacco Use Status: Never used Tobacco Physical Exam Vital Signs: Last Vital Signs Pulse 64 07/19/25 11:28 BP 102/64 07/19/25 11:28 Pulse Ox 98 07/19/25 11:28 Oxygen Delivery Method Room Air 07/19/25 11:28 BMI result Body Mass Index 27.1 Const General: cooperative and no acute distress Nutritional Appearance: average body habitus Orientation/consciousness: patient oriented x3 HEENT Head: Yes normal to inspection Neck Other: mild antecollis and restricted range of motion Neuro Other: Mild decreased blink and facial expression Voice- normal no dyskinesia today left UE rest tremors Fine Finger movements - mild decreased beulah l>R Alternating hand movements - decreased beulah Hand movements - decreased beulah Foot taps- decreased beulah No cog wheel rigidity gait - stooped, mild slowness and decreased arm swing L>R General: patient oriented x3 and no focal motor deficits Cranial nerves: Yes CN's II-XII intact bilaterally, Yes Bilaterally intact EOM present, Yes Normal facial strength present, Yes Midline tongue present and Yes Ability to bilaterally rotate head present Cognition (Neuro): abnormal cognition (repeats questions frequently) Motor exam (neuro): 5/5 motor strength present throughout and Normal motor muscle tone present throughout Coordination: [id number] test normal Psych Mental Status: mental status grossly normal Affect: normal affect Assessment & Plan Assessment & Plan (1) Parkinson's disease with dyskinesia and fluctuating manifestations: Code(s): G20.B2 - Parkinson's disease with dyskinesia, with fluctuations Category: Medical (2) Depression: Code(s): F32.A - Depression, unspecified Category: Medical Qualifiers: Depression Type: other depression Qualified Code(s): F32.89 - Other specified depressive episodes (3) Chronic back pain: Code(s): M54.9 - Dorsalgia, unspecified; G89.29 - Other chronic pain Category: Medical Qualifiers: Back pain location: low back pain Back pain laterality: midline Sciatica presence: with sciatica Sciatica laterality: sciatica of left side Qualified Code(s): M54.42 - Lumbago with sciatica, left side; G89.29 - Other chronic pain Plan I will trial him on mirtazapine Continue azilect 1mg qd sinemet 25/100 2 tabs tid and sinemet CR 50/200 qhs Citalopram 10 mg qd Tylenol 500mg qhs Continue exercise Discussed sleep hygiene Medications: New mirtazapine 7.5 mg PO BEDTIME 30 tabs 1RF Coding Level of Care Code Est Pt Level 4 (98179) Complex EM visit Add On G2211 Diagnoses Parkinson's disease with dyskinesia and fluctuating manifestations G20.B2 Other depression F32.89 Depression Type: other depression Chronic midline low back pain with left-sided sciatica M54.42; G89.29 Back pain location: low back pain Back pain laterality: midline Sciatica presence: with sciatica Sciatica laterality: sciatica of left side
--- OUTSIDE RECORDS SUMMARY | 2025-07-19 12:24 | XMS_ITS | Clinical Summary ---
Author Organization [facility] Address [address] [place] [address] Care Team Providers Care Double End Trimmer Name Role Phone Callum Wolff MD Primary Care Provider [phone] Medications Medication Sig Dispensed Refills Start Date [...] 73 03/10/2024 12:09 AM EDT Temperature 36.7 C (98 F) 03/10/2024 12:09 AM EDT Respiratory Rate 16 [...] 1-dose 75+ series) 2023 Influenza Vaccine (#1) 2025 Hepatitis B Vaccines Aged Out No long er eligible based on patient's age to complete this topic RSV Ped < 20 months Aged Out No longe r eligible based on patient's age to complete this topic Care Teams Double End Trimmer Relationship Specialty Start Date End Date Callum Wolff MD [address] [place] [id number] PCP - General Internal Medicine 03/09/24
--- OUTSIDE RECORDS SUMMARY | 2025-07-19 12:24 | XMS_ITS ---
Author Name [facility] Organization Unknown Results Test Name/Text Value Interpretation Date Range Source WBC #/area UrnS HPF >20.0 /HPF Above high normal 07/02/2025 0 - 5 [facility] RBC #/area UrnS HPF >20.0 /HPF Above high normal 07/02/2025 0 - 3 [facility] Bacteria #/area UrnS HPF 3+ Abnormal 07/02/2025 - [facility] Glucose Ur Ql Negative 07/02/2025 - [facility] Leukocyte esterase Ur Ql Strip Moderate Abnormal 07/02/2025 - [facility] Color Ur Yellow 07/02/2025 - [facility] Sp Gr Ur 1.015 07/02/2025 1.005 - 1.03 [facility] Nitrite Ur Ql Negative 07/02/2025 - [facility] Hgb Ur Ql Large Abnormal 07/02/2025 - [facility] Ketones Ur-mCnc Negative 07/02/2025 - [facility] pH Ur 6.0 pH 07/02/2025 5 - 8 [facility] Prot Ur Strip-mCnc 100.0 mg/dL Abnormal 07/02/2025 - [facility] Clarity Ur Cloudy Abnormal 07/02/2025 - [facility] Monocytes NFr Bld Auto 7.3 % 07/02/2025 2 - 12 [facility] Monocytes # Bld Auto 0.68 K/mcL 07/02/2025 0 - 0.8 [facility] Eosinophil NFr Bld Auto 1.3 % 07/02/2025 0 - 6 [facility] Lymphocytes # Bld Auto 1.97 K/mcL 07/02/2025 1 - 3.2 [facility] Basophils # Bld Auto <0.03 K/mcL 07/02/2025 0 - 0.2 [facility] Basophils NFr Bld Auto 0.2 % 07/02/2025 0 - 2 [facility] Hct VFr Bld Auto 43.6 % 07/02/2025 40 - 54 [facility] RBC # Bld Auto 4.67 M/mcL Below low normal 07/02/2025 4.7 - 6 [facility] Lymphocytes NFr Bld Auto 21.1 % 07/02/2025 20 - 48 [facility] Neutrophils # Bld Auto 6.48 K/mcL 07/02/2025 1.8 - 7.8 [facility] Eosinophil # Bld Auto 0.12 K/mcL 07/02/2025 0 - 0.5 [facility] MCHC RBC Auto-EntMCnc 32.8 g/dL 07/02/2025 32 - 36 [facility] Neutrophils NFr Bld Auto 69.5 % 07/02/2025 44 - 74 [facility] PMV Bld Auto 12.9 FL Above high normal 07/02/2025 7.4 - 11 .4 [facility] RBC Auto 93.4 FL 07/02/2025 78 - 100 [facility] WBC # Bld Auto 9.3 K/mcL 07/02/2025 4 - 10.5 [facility] Hgb Bld-mCnc 14.3 g/dL 07/02/2025 13.5 - 18 [facility] RDW RBC Auto 13.6 % 07/02/2025 12.1 - 17.7 [facility] Platelet # Bld Auto 163.0 K/mcL 07/02/2025 150 - 4 50 [facility] MCH RBC Qn Auto 30.6 pcg 07/02/2025 25 - 33 [facility] Creat SerPl-mCnc 0.77 mg/dL 07/02/2025 0.7 - 1.3 C [facility] Chloride SerPl-sCnc 102.0 mmol/L 07/02/2025 98 - 1 07 [facility] Calcium SerPl-mCnc 8.9 mg/dL 07/02/2025 8.4 - 10.2 [facility] Glucose SerPl-mCnc 146.0 mg/dL 07/02/2025 70 - 199 [facility] Albumin SerPl-mCnc 4.8 g/dL 07/02/2025 3.5 - 5 [facility] AST SerPl-cCnc 19.0 unit/L 07/02/2025 5 - 40 CT _[facility] Anion Gap SerPl Calc-sCnc 7.0 07/02/2025 5 - 14 [facility] Sodium SerPl-sCnc 139.0 mmol/L 07/02/2025 135 - 14 5 [facility] Prot SerPl-mCnc 7.2 g/dL 07/02/2025 6.4 - 8.5 CT_ [facility] BUN SerPl-mCnc 16.0 mg/dL 07/02/2025 9 - 20 CT_ [facility] eGFRcr SerPlBld CKD-EPI 2020 93.0 mL/min/1.73m2 07/02/2025 - [facility] BUN/Creat SerPl 20.8 Above high normal 07/02/2025 12 - 20 [facility] Potassium SerPl-sCnc 3.6 mmol/L 07/02/2025 3.5 - 5.1 [facility] ALT SerPl-cCnc 12.0 unit/L 07/02/2025 7 - 52 CT [facility] Bilirub SerPl-mCnc 0.6 mg/dL 07/02/2025 0.3 - 1 [facility] CO2 SerPl-sCnc 30.0 mmol/L 07/02/2025 24 - 32 CT [facility] ALP SerPl-cCnc 74.0 unit/L 07/02/2025 34 - 104 CT [facility] Lactate Bld-sCnc 0.9 mmol/L 07/02/2025 - C [facility] Glucose Bld-mCnc 126.0 mg/dL 06/07/2025 70 - 199 [facility] Anion Gap SerPl Calc-sCnc 9.0 06/07/2025 5 - 14 [facility] Creat SerPl-mCnc 0.71 mg/dL 06/07/2025 0.7 - 1.3 C [facility] Calcium SerPl-mCnc 9.0 mg/dL 06/07/2025 8.4 - 10.2 [facility] BUN/Creat SerPl 18.3 06/07/2025 12 - 20 [facility]_ [facility] Chloride SerPl-sCnc 100.0 mmol/L 06/07/2025 98 - 1 07 [facility] eGFRcr SerPlBld CKD-EPI 2020 95.0 mL/min/1.73m2 06/07/2025 - [facility] Potassium SerPl-sCnc 3.7 mmol/L 06/07/2025 3.5 - 5.1 [facility] CO2 SerPl-sCnc 30.0 mmol/L 06/07/2025 24 - 32 CT [facility] BUN SerPl-mCnc 13.0 mg/dL 06/07/2025 9 - 20 [facility]_ [facility] Glucose SerPl-mCnc 134.0 mg/dL 06/07/2025 70 - 199 [facility] Sodium SerPl-sCnc 139.0 mmol/L 06/07/2025 135 - 14 5 [facility] Hct VFr Bld Auto 41.1 % 06/07/2025 40 - 54 CT [facility] MCHC RBC Auto-EntMCnc 32.4 g/dL 06/07/2025 32 - 36 [facility] Monocytes NFr Bld Auto 9.9 % 06/07/2025 2 - 12 [facility] Hgb Bld-mCnc 13.3 g/dL Below low normal 06/07/2025 13.5 - 18 [facility] Lymphocytes # Bld Auto 1.11 K/mcL 06/07/2025 1 - 3.2 [facility] RBC # Bld Auto 4.41 M/mcL Below low normal 06/07/2025 4.7 - 6 [facility] Neutrophils NFr Bld Auto 72.9 % 06/07/2025 44 - 74 [facility] Eosinophil # Bld Auto 0.21 K/mcL 06/07/2025 0 - 0.5 [facility] RDW RBC Auto 13.7 % 06/07/2025 12.1 - 17.7 [facility] Neutrophils # Bld Auto 5.88 K/mcL 06/07/2025 1.8 - 7.8 [facility] Monocytes # Bld Auto 0.8 K/mcL 06/07/2025 0 - 0.8 [facility] Basophils NFr Bld Auto 0.2 % 06/07/2025 0 - 2 [facility] Basophils # Bld Auto <0.03 K/mcL 06/07/2025 0 - 0.2 [facility] Eosinophil NFr Bld Auto 2.6 % 06/07/2025 0 - 6 [facility] RBC Auto 93.2 FL 06/07/2025 78 - 100 [facility] PMV Bld Auto 11.8 FL Above high normal 06/07/2025 7.4 - 11 .4 [facility] WBC # Bld Auto 8.1 K/mcL 06/07/2025 4 - 10.5 [facility] Platelet # Bld Auto 162.0 K/mcL 06/07/2025 150 - 4 50 [facility] MCH RBC Qn Auto 30.2 pcg 06/07/2025 25 - 33 [facility]_ [facility] Lymphocytes NFr Bld Auto 13.8 % Below low normal 06/07/2025 20 - 48 [facility] Glucose Bld-mCnc 130.0 mg/dL 06/07/2025 70 - 199 [facility] Glucose Bld-mCnc 133.0 mg/dL 06/06/2025 70 - 199 [facility] Glucose Bld-mCnc 137.0 mg/dL 06/06/2025 70 - 199 [facility] CO2 SerPl-sCnc 30.0 mmol/L 06/06/2025 24 - 32 CT [facility] Calcium SerPl-mCnc 8.7 mg/dL 06/06/2025 8.4 - 10.2 [facility] Chloride SerPl-sCnc 98.0 mmol/L 06/06/2025 98 - 10 7 [facility] Sodium SerPl-sCnc 135.0 mmol/L 06/06/2025 135 - 14 5 [facility] eGFRcr SerPlBld CKD-EPI 2020 96.0 mL/min/1.73m2 06/06/2025 - [facility] BUN/Creat SerPl 21.7 Above high normal 06/06/2025 12 - 20 [facility] Creat SerPl-mCnc 0.69 mg/dL Below low normal 06/06/2025 0.7 - 1.3 [facility] Potassium SerPl-sCnc 3.5 mmol/L 06/06/2025 3.5 - 5.1 [facility] Anion Gap SerPl Calc-sCnc 7.0 06/06/2025 5 - 14 [facility] Glucose SerPl-mCnc 116.0 mg/dL 06/06/2025 70 - 199 [facility] BUN SerPl-mCnc 15.0 mg/dL 06/06/2025 9 - 20 [facility] RBC Auto 92.5 FL 06/06/2025 78 - 100 [facility] WBC # Bld Auto 8.6 K/mcL 06/06/2025 4 - 10.5 CT_T [facility] RBC # Bld Auto 4.24 M/mcL Below low normal 06/06/2025 4.7 - 6 [facility] RDW RBC Auto 13.6 % 06/06/2025 12.1 - 17.7 CT_T [facility] MCHC RBC Auto-EntMCnc 32.7 g/dL 06/06/2025 32 - 36 [facility] Eosinophil # Bld Auto 0.05 K/mcL 06/06/2025 0 - 0.5 [facility] Lymphocytes NFr Bld Auto 10.1 % Below low normal 06/06/2025 20 - 48 [facility] Hct VFr Bld Auto 39.2 % Below low normal 06/06/2025 40 - 54 [facility] Neutrophils # Bld Auto 6.6 K/mcL 06/06/2025 1.8 - 7.8 [facility] Lymphocytes # Bld Auto 0.87 K/mcL Below low normal 06/06/2025 1 - 3.2 [facility] MCH RBC Qn Auto 30.2 pcg 06/06/2025 25 - 33 CT_ [facility] Hgb Bld-mCnc 12.8 g/dL Below low normal 06/06/2025 13.5 - 18 [facility] PMV Bld Auto 12.3 FL Above high normal 06/06/2025 7.4 - 11 .4 [facility] Eosinophil NFr Bld Auto 0.6 % 06/06/2025 0 - 6 [facility] Basophils NFr Bld Auto 0.2 % 06/06/2025 0 - 2 [facility] Basophils # Bld Auto <0.03 K/mcL 06/06/2025 0 - 0.2 [facility] Monocytes # Bld Auto 1.04 K/mcL Above high normal 06/06/2025 0 - 0.8 [facility] Platelet # Bld Auto 146.0 K/mcL Below low normal 06/06/2025 150 - 450 [facility] Neutrophils NFr Bld Auto 76.4 % Above high normal 06/06/2025 44 - 74 [facility] Monocytes NFr Bld Auto 12.1 % Above high normal 06/06/2025 2 - 12 [facility] Glucose Bld-mCnc 120.0 mg/dL 06/06/2025 70 - 199 [facility] Glucose Bld-mCnc 130.0 mg/dL 06/06/2025 70 - 199 [facility] Glucose Bld-mCnc 122.0 mg/dL 06/05/2025 70 - 199 [facility] Glucose Bld-mCnc 102.0 mg/dL 06/05/2025 70 - 199 [facility] BUN SerPl-mCnc 11.0 mg/dL 06/05/2025 9 - 20 [facility] BUN/Creat SerPl 15.5 06/05/2025 12 - 20 [facility] Calcium SerPl-mCnc 8.7 mg/dL 06/05/2025 8.4 - 10.2 [facility] CO2 SerPl-sCnc 29.0 mmol/L 06/05/2025 24 - 32 [facility] Anion Gap SerPl Calc-sCnc 8.0 06/05/2025 5 - 14 [facility] Creat SerPl-mCnc 0.71 mg/dL 06/05/2025 0.7 - 1.3 C [facility] Glucose SerPl-mCnc 136.0 mg/dL 06/05/2025 70 - 199 [facility] Chloride SerPl-sCnc 97.0 mmol/L Below low normal 06/05/2025 98 - 107 [facility] Sodium SerPl-sCnc 134.0 mmol/L Below low normal 06/05/2025 1 35 - 145 [facility] Potassium SerPl-sCnc 3.7 mmol/L 06/05/2025 3.5 - 5.1 [facility] eGFRcr SerPlBld CKD-EPI 2020 95.0 mL/min/1.73m2 06/05/2025 - [facility] Platelet # Bld Auto 131.0 K/mcL Below low normal 06/05/2025 150 - 450 [facility] MCH RBC Qn Auto 30.5 pcg 06/05/2025 25 - 33 [facility] MCHC RBC Auto-EntMCnc 33.2 g/dL 06/05/2025 32 - 36 [facility] PMV Bld Auto 12.2 FL Above high normal 06/05/2025 7.4 - 11 .4 [facility] WBC # Bld Auto 10.8 K/mcL Above high normal 06/05/2025 4 - 1 0.5 [facility] Neutrophils # Bld Auto 8.28 K/mcL Above high normal 06/05/2025 1.8 - 7.8 [facility] Hct VFr Bld Auto 38.5 % Below low normal 06/05/2025 40 - 54 [facility] Eosinophil NFr Bld Auto 0.1 % 06/05/2025 0 - 6 [facility] Neutrophils NFr Bld Auto 76.6 % Above high normal 06/05/2025 44 - 74 [facility] Lymphocytes NFr Bld Auto 8.1 % Below low normal 06/05/2025 20 - 48 [facility] Basophils # Bld Auto <0.03 K/mcL 06/05/2025 0 - 0.2 [facility] Lymphocytes # Bld Auto 0.87 K/mcL Below low normal 06/05/2025 1 - 3.2 [facility] RDW RBC Auto 13.4 % 06/05/2025 12.1 - 17.7 CT_T [facility] RBC # Bld Auto 4.2 M/mcL Below low normal 06/05/2025 4.7 - 6 [facility] Eosinophil # Bld Auto <0.03 K/mcL 06/05/2025 0 - 0.5 [facility] RBC Auto 91.7 FL 06/05/2025 78 - 100 [facility] Hgb Bld-mCnc 12.8 g/dL Below low normal 06/05/2025 13.5 - 18 [facility] Basophils NFr Bld Auto 0.1 % 06/05/2025 0 - 2 [facility] Monocytes # Bld Auto 1.57 K/mcL Above high normal 06/05/2025 0 - 0.8 [facility] Monocytes NFr Bld Auto 14.5 % Above high normal 06/05/2025 2 - 12 [facility] Glucose Bld-mCnc 151.0 mg/dL 06/05/2025 70 - 199 [facility] Glucose Bld-mCnc 125.0 mg/dL 06/05/2025 70 - 199 [facility] Glucose Bld-mCnc 196.0 mg/dL 06/04/2025 70 - 199 [facility] Glucose Bld-mCnc 130.0 mg/dL 06/04/2025 70 - 199 [facility] Troponin I SerPl HS-mCnc 15.0 ng/L 06/04/2025 0 - 20 [facility] eGFRcr SerPlBld CKD-EPI 2020 94.0 mL/min/1.73m2 06/04/2025 - [facility] Glucose SerPl-mCnc 119.0 mg/dL 06/04/2025 70 - 199 [facility] BUN/Creat SerPl 18.7 06/04/2025 12 - 20 [facility]_ [facility] Creat SerPl-mCnc 0.75 mg/dL 06/04/2025 0.7 - 1.3 C [facility] BUN SerPl-mCnc 14.0 mg/dL 06/04/2025 9 - 20 CT_ [facility] Sodium SerPl-sCnc 130.0 mmol/L Below low normal 06/04/2025 1 35 - 145 [facility] Chloride SerPl-sCnc 98.0 mmol/L 06/04/2025 98 - 10 7 [facility] Anion Gap SerPl Calc-sCnc 4.0 Below low normal 06/04/2025 5 - 14 [facility] Potassium SerPl-sCnc 3.7 mmol/L 06/04/2025 3.5 - 5.1 [facility] CO2 SerPl-sCnc 28.0 mmol/L 06/04/2025 24 - 32 CT [facility] Calcium SerPl-mCnc 8.4 mg/dL 06/04/2025 8.4 - 10.2 [facility] WBC # Bld Auto 9.4 K/mcL 06/04/2025 4 - 10.5 [facility] Lymphocytes # Bld Auto 0.66 K/mcL Below low normal 06/04/2025 1 - 3.2 [facility] RBC # Bld Auto 4.35 M/mcL Below low normal 06/04/2025 4.7 - 6 [facility] Hct VFr Bld Auto 41.0 % 06/04/2025 40 - 54 CT [facility] Eosinophil # Bld Auto <0.03 K/mcL 06/04/2025 0 - 0.5 [facility] Lymphocytes NFr Bld Auto 7.0 % Below low normal 06/04/2025 20 - 48 [facility] Hgb Bld-mCnc 13.3 g/dL Below low normal 06/04/2025 13.5 - 18 [facility] Monocytes # Bld Auto 0.68 K/mcL 06/04/2025 0 - 0.8 [facility] RDW RBC Auto 13.5 % 06/04/2025 12.1 - 17.7 CT_[facility] Neutrophils NFr Bld Auto 85.0 % Above high normal 06/04/2025 44 - 74 [facility] Monocytes NFr Bld Auto 7.2 % 06/04/2025 2 - 12 [facility] PMV Bld Auto 11.8 FL Above high normal 06/04/2025 7.4 - 11 .4 [facility] Platelet # Bld Auto 134.0 K/mcL Below low normal 06/04/2025 150 - 450 [facility] Basophils # Bld Auto <0.03 K/mcL 06/04/2025 0 - 0.2 [facility] MCH RBC Qn Auto 30.6 pcg 06/04/2025 25 - 33 CT_ [facility] Basophils NFr Bld Auto 0.1 % 06/04/2025 0 - 2 [facility] MCHC RBC Auto-EntMCnc 32.4 g/dL 06/04/2025 32 - 36 [facility] Eosinophil NFr Bld Auto 0.2 % 06/04/2025 0 - 6 [facility] RBC Auto 94.3 FL 06/04/2025 78 - 100 [facility] Neutrophils # Bld Auto 7.97 K/mcL Above high normal 06/04/2025 1.8 - 7.8 [facility] Glucose Bld-mCnc 112.0 mg/dL 06/04/2025 70 - 199 [facility] Glucose Bld-mCnc 145.0 mg/dL 06/04/2025 70 - 199 [facility] HCO3 BldV-sCnc 25.8 mmol/L 06/03/2025 CT _[facility] pCO2 BldV 51.0 mmHg 06/03/2025 [facility] pH BldV 7.37 pH 06/03/2025 7.35 - 7.45 [facility] H Base excess BldV Calc-sCnc 3.1 mmol/L 06/03/2025 [facility] SaO2 % BldV 39.2 % 06/03/2025 [facility] H pO2 BldV 24.0 mmHg 06/03/2025 [facility] Glucose Bld-mCnc 143.0 mg/dL 06/03/2025 70 - 199 [facility] Glucose Bld-mCnc 117.0 mg/dL 06/03/2025 70 - 199 [facility] Prot SerPl-mCnc 7.5 g/dL 06/03/2025 6.4 - 8.5 CT_ [facility] Sodium SerPl-sCnc 131.0 mmol/L Below low normal 06/03/2025 1 35 - 145 [facility] BUN/Creat SerPl 17.9 06/03/2025 12 - 20 CT_ [facility] eGFRcr SerPlBld CKD-EPI 2020 90.0 mL/min/1.73m2 06/03/2025 - [facility] ALP SerPl-cCnc 58.0 unit/L 06/03/2025 34 - 104 CT _[facility] BUN SerPl-mCnc 15.0 mg/dL 06/03/2025 9 - 20 CT_ [facility] Albumin SerPl-mCnc 4.5 g/dL 06/03/2025 3.5 - 5 [facility] Chloride SerPl-sCnc 97.0 mmol/L Below low normal 06/03/2025 98 - 107 [facility] Glucose SerPl-mCnc 112.0 mg/dL 06/03/2025 70 - 199 [facility] ALT SerPl-cCnc 19.0 unit/L 06/03/2025 7 - 52 CT [facility] CO2 SerPl-sCnc 26.0 mmol/L 06/03/2025 24 - 32 CT _[facility] Calcium SerPl-mCnc 9.1 mg/dL 06/03/2025 8.4 - 10.2 [facility] Anion Gap SerPl Calc-sCnc 8.0 06/03/2025 5 - 14 [facility] Potassium SerPl-sCnc 4.0 mmol/L 06/03/2025 3.5 - 5.1 [facility] Bilirub SerPl-mCnc 1.1 mg/dL Above high normal 06/03/2025 0. 3 - 1 [facility] Creat SerPl-mCnc 0.84 mg/dL 06/03/2025 0.7 - 1.3 C [facility] AST SerPl-cCnc 19.0 unit/L 06/03/2025 5 - 40 CT _[facility] BNP SerPl-mCnc 354.0 pcg/mL Above high normal 06/03/2025 0 - 100 [facility] Troponin I SerPl HS-mCnc 13.0 ng/L 06/03/2025 0 - 20 [facility] D Dimer PPP DDU-mCnc 208.0 ng/mL DDU 06/03/2025 - 231 [facility] LACTIC ACID 1.3 mmol/L 06/03/2025 - [facility] Basophils # Bld Auto <0.03 K/mcL 06/03/2025 0 - 0.2 [facility] Hgb Bld-mCnc 16.7 g/dL 06/03/2025 13.5 - 18 [facility] MH RBC Auto 96.1 FL 06/03/2025 78 - 100 [facility] MCHC RBC Auto-EntMCnc 32.2 g/dL 06/03/2025 32 - 36 [facility] Monocytes # Bld Auto 0.53 K/mcL 06/03/2025 0 - 0.8 [facility] Eosinophil # Bld Auto <0.03 K/mcL 06/03/2025 0 - 0.5 [facility] RDW RBC Auto 13.6 % 06/03/2025 12.1 - 17.7 [facility] Lymphocytes NFr Bld Auto 7.3 % Below low normal 06/03/2025 20 - 48 [facility] Platelet # Bld Auto 137.0 K/mcL Below low normal 06/03/2025 150 - 450 [facility] Eosinophil NFr Bld Auto 0.0 % 06/03/2025 0 - 6 [facility] Hct VFr Bld Auto 51.8 % 06/03/2025 40 - 54 CT _[facility] Lymphocytes # Bld Auto 0.75 K/mcL Below low normal 06/03/2025 1 - 3.2 [facility] PMV Bld Auto 11.4 FL 06/03/2025 7.4 - 11.4 CT_[facility] MCH RBC Qn Auto 31.0 pcg 06/03/2025 25 - 33 CT_ [facility] Basophils NFr Bld Auto 0.1 % 06/03/2025 0 - 2 [facility] RBC # Bld Auto 5.39 M/mcL 06/03/2025 4.7 - 6 CT_ [facility] Neutrophils NFr Bld Auto 86.8 % Above high normal 06/03/2025 44 - 74 [facility] WBC # Bld Auto 10.3 K/mcL 06/03/2025 4 - 10.5 CT_ [facility] Monocytes NFr Bld Auto 5.2 % 06/03/2025 2 - 12 [facility] Neutrophils # Bld Auto 8.93 K/mcL Above high normal 06/03/2025 1.8 - 7.8 [facility] RBC #/area UrnS HPF 2.0 /HPF 06/03/2025 0 - 3 [facility] WBC #/area UrnS HPF 3.0 /HPF 06/03/2025 0 - 5 [facility] Mucous Threads UrnS Ql Micro Trace 06/03/2025 - [facility] Sp Gr Ur 1.01 06/03/2025 1.005 - 1.03 [facility] Hgb Ur Ql Trace Abnormal 06/03/2025 - [facility] Clarity Ur Clear 06/03/2025 - [facility] Color Ur Yellow 06/03/2025 - [facility] pH Ur 6.0 pH 06/03/2025 5 - 8 [facility] Nitrite Ur Ql Negative 06/03/2025 - [facility] Ketones Ur-mCnc Trace Abnormal 06/03/2025 - CT_ [facility] Prot Ur Strip-mCnc Trace Abnormal 06/03/2025 - [facility] Glucose Ur Ql Negative 06/03/2025 - [facility] Leukocyte esterase Ur Ql Strip Trace Abnormal 06/03/2025 - [facility] LACTIC ACID 1.6 mmol/L 06/02/2025 - [facility] Troponin I SerPl HS-mCnc 8.0 ng/L 06/02/2025 0 - 20 [facility] Sodium SerPl-sCnc 134.0 mmol/L Below low normal 06/02/2025 1 35 - 145 [facility] CO2 SerPl-sCnc 27.0 mmol/L 06/02/2025 24 - 32 CT _[facility] Anion Gap SerPl Calc-sCnc 7.0 06/02/2025 5 - 14 [facility] BUN/Creat SerPl 27.4 Above high normal 06/02/2025 12 - 20 [facility] eGFRcr SerPlBld CKD-EPI 2020 90.0 mL/min/1.73m2 06/02/2025 - [facility] Potassium SerPl-sCnc 4.4 mmol/L 06/02/2025 3.5 - 5.1 [facility] Glucose SerPl-mCnc 127.0 mg/dL 06/02/2025 70 - 199 [facility] Chloride SerPl-sCnc 100.0 mmol/L 06/02/2025 98 - 1 07 [facility] Creat SerPl-mCnc 0.84 mg/dL 06/02/2025 0.7 - 1.3 C [facility] Calcium SerPl-mCnc 9.2 mg/dL 06/02/2025 8.4 - 10.2 [facility] BUN SerPl-mCnc 23.0 mg/dL Above high normal 06/02/2025 9 - 2 0 [facility] MCHC RBC Auto-EntMCnc 32.0 g/dL 06/02/2025 32 - 36 [facility] Basophils # Bld Auto 0.04 K/mcL 06/02/2025 0 - 0.2 [facility] PMV Bld Auto 11.7 FL Above high normal 06/02/2025 7.4 - 11 .4 [facility] Platelet # Bld Auto 195.0 K/mcL 06/02/2025 150 - 4 50 [facility] Lymphocytes # Bld Auto 1.16 K/mcL 06/02/2025 1 - 3.2 [facility] Neutrophils NFr Bld Auto 85.2 % Above high normal 06/02/2025 44 - 74 [facility] Eosinophil NFr Bld Auto 0.3 % 06/02/2025 0 - 6 [facility] Hgb Bld-mCnc 14.1 g/dL 06/02/2025 13.5 - 18 [facility] Basophils NFr Bld Auto 0.2 % 06/02/2025 0 - 2 [facility] WBC # Bld Auto 17.6 K/mcL Above high normal 06/02/2025 4 - 1 0.5 [facility] RDW RBC Auto 13.3 % 06/02/2025 12.1 - 17.7 [facility] Monocytes # Bld Auto 1.21 K/mcL Above high normal 06/02/2025 0 - 0.8 [facility] RBC Auto 94.0 FL 06/02/2025 78 - 100 [facility] MCH RBC Qn Auto 30.1 pcg 06/02/2025 25 - 33 [facility]_ [facility] Eosinophil # Bld Auto 0.05 K/mcL 06/02/2025 0 - 0.5 [facility] Lymphocytes NFr Bld Auto 6.6 % Below low normal 06/02/2025 20 - 48 [facility] RBC # Bld Auto 4.69 M/mcL Below low normal 06/02/2025 4.7 - 6 [facility] Monocytes NFr Bld Auto 6.9 % 06/02/2025 2 - 12 [facility] Neutrophils # Bld Auto 15.01 K/mcL Above high normal 06/02/2025 1.8 - 7.8 [facility] Hct VFr Bld Auto 44.1 % 06/02/2025 40 - 54 [facility] WBC #/area UrnS HPF >20.0 /HPF Above high normal 06/02/2025 0 - 5 [facility] RBC #/area UrnS HPF 2.0 /HPF 06/02/2025 0 - 3 [facility] Bacteria #/area UrnS HPF 3+ Abnormal 06/02/2025 - [facility] Mucous Threads UrnS Ql Micro 1+ 06/02/2025 - [facility] pH Ur 5.5 pH 06/02/2025 5 - 8 [facility] Prot Ur Strip-mCnc Negative 06/02/2025 - [facility] Sp Gr Ur 1.015 06/02/2025 1.005 - 1.03 [facility] Glucose Ur Ql Negative 06/02/2025 - [facility] Leukocyte esterase Ur Ql Strip Moderate Abnormal 06/02/2025 - [facility] Ketones Ur-mCnc Negative 06/02/2025 - [facility]_ [facility] Clarity Ur Cloudy Abnormal 06/02/2025 - [facility] Nitrite Ur Ql Negative 06/02/2025 - [facility] Hgb Ur Ql Trace Abnormal 06/02/2025 - [facility] Color Ur Yellow 06/02/2025 - [facility] RBC #/area UrnS HPF >20.0 /HPF Above high normal 04/27/2025 0 - 3 [facility] Mucous Threads UrnS Ql Micro 1+ 04/27/2025 - [facility] WBC #/area UrnS HPF >20.0 /HPF Above high normal 04/27/2025 0 - 5 [facility] Nitrite Ur Ql Negative 04/27/2025 - [facility] Color Ur Brown Abnormal 04/27/2025 - [facility] Ketones Ur-mCnc 15.0 mg/dL Abnormal 04/27/2025 - [facility] Glucose Ur Ql Negative 04/27/2025 - [facility] Clarity Ur Turbid Abnormal 04/27/2025 - [facility] Hgb Ur Ql Large Abnormal 04/27/2025 - [facility] Prot Ur Strip-mCnc 100.0 mg/dL Abnormal 04/27/2025 - [facility] Leukocyte esterase Ur Ql Strip Moderate Abnormal 04/27/2025 - [facility] Sp Gr Ur 1.025 04/27/2025 1.005 - 1.03 [facility] pH Ur 6.0 pH 04/27/2025 5 - 8 [facility] History of Medication Use Medication Directions Dispensed Refills Start Date End Date Stat cefdinir (OMNICEF) 300 mg capsule Take 1 capsule (300 mg total) by mouth 2 (two) times a day for 14 days. 06/06/2025 active peg 400-propylene glycol (ARTIFICIAL TEARS) 0.4-0.3 % ophthalmic solution drops 1 drop 1 drop, Both Eyes, Every 6 hours PRN, dry eyes, Starting on Sat06/05/25 at 1855 06/05/2025 active oxyBUTYnin (DITROPAN) tablet 5 mg 5 mg, oral, 2 times daily, First dose on Sat06/03/25 at 2100 06/04/2025 aborted aluminum-magnesium hydroxide-simethico ne (MAALOX) 200-200-20 mg/5 mL suspension 30 mL 30 mL, oral, 4 times daily before meals and nightly, First dose on Sat06/04/25 at 1145 06/04/2025 active carbidopa-levodopa CR (SINEMET CR) 25-100 mg per CR tablet 1 tablet 1 tablet, oral, Nightly, First dose on Sat06/03/25 at 2100, Do not crush, chew, or split. 06/04/2025 active DULoxetine (CYMBALTA) DR capsule 30 mg 30 mg, oral, Nightly, First dose on Sat06/03/25 at 2100, Do not crush or chew. 06/04/2025 active metoprolol succinate (TOPROL-XL) 24 Hour tablet 50 mg 50 mg, oral, 2 times daily, First dose (after last modification) on Sat06/03/25 at 2215, Do not crush or chew. 06/04/2025 active ondansetron ODT (ZOFRAN-ODT) disintegrating tablet 4 mg [Order 1 Start] Name: ondansetron ODT (ZOFRAN-ODT) disintegrating tablet 4 mg Signed Summary: 4 mg, oral, Every 8 hours PRN, vomiting, nausea, Starting on Sat06/04/25 at 1748, -Give IV if patient is unable to take orally. -If inadequate response within 30 minutes, proceed to next-line agent or contac 06/04/2025 active pantoprazole (PROTONIX) 40 mg EC tablet Take 1 tablet (40 mg total) by mouth 1 (one) time each day before breakfast. Do not crush, chew, or split. 06/04/2025 active rosuvastatin (CRESTOR) tablet 5 mg 5 mg, oral, Nightly, First dose on Sat06/03/25 at 2100, Patient supplied med - remove under override., Drug Name: rosuvastatin, Form: tablet, Length of Therapy: Indefinite, How soon needed? (normally 72 hrs needed to procure): 0-24 hrs, Reason for Non-Formulary: patient supplied 06/04/2025 active lactated Ringer's infusion 75 mL/hr, intravenous, Continuous, Starting on Sat06/03/25 at 1300 06/03/2025 5 aborted acetaminophen (TYLENOL) tablet 1,000 mg 1,000 mg, oral, Once, On Sat06/03/25 at 0903, For 1 dose 06/03/2025 5 completed iopamidoL (ISOVUE-370) 370 mg iodine /mL (76 %) injection 100 mL 100 mL, intravenous, Once in imaging, Starting on Sat06/03/25 at 0740, For 1 dose 06/03/2025 5 completed sodium chloride 0.9 % bolus 500 mL 500 mL, intravenous, at 1,000 mL/hr, Administer over 30 Minutes, Once, On Sat06/03/25 at 0649, For 1 dose 06/03/2025 5 completed sodium chloride 0.9 % flush 10 mL 10 mL, intravenous, Once, On Sat06/03/25 at 0741, For 1 dose 06/03/2025 5 completed sodium chloride 0.9 % intravenous solution 50 mL 50 mL, intravenous, Once in imaging, Starting on Sat06/03/25 at 0740, For 1 dose 06/03/2025 5 completed acetaminophen (TYLENOL) tablet 650 mg 650 mg, oral, Every 6 hours PRN, mild pain, headaches, fever - temperature GREATER than 38 C (100.4 F), Starting on Sat06/03/25 at 1023 06/03/2025 active cefepime (MAXIPIME) 1 g in sterile water 10 mL IV syringe 1 g, intravenous, Administer over 5 Minutes, Every 8 hours, First dose on Shruthi 06/03/25 at 1026, For 7 days, Indication: Urinary Tract/Genitourinary 06/03/2025 active citalopram (CeleXA) tablet 10 mg 10 mg, oral, Daily, First dose on Sat06/03/25 at 1028 06/03/2025 active dextrose (D50W) 50% injection 12.5 g 12.5 g, intravenous, Every 15 min PRN, low blood sugar, moderate hypoglycemia *Patient is Unconscious, NPO, unable to swallow: BG 54 - 69 mg/dl*, Starting on Sat06/03/25 at 1450 06/03/2025 active dextrose (D50W) 50% injection 25 g 25 g, intravenous, Every 15 min PRN, low blood sugar, severe hypoglycemia *Patient is Unconscious, NPO, unable to swallow: BG LESS than 54 mg/dL*, Starting on Sat06/03/25 at 1450 06/03/2025 active dextrose 15 gram/60 mL oral solution 15 g 15 g, oral, Every 15 min PRN, low blood sugar, hypoglycemia *Patient conscious AND able to drink and swallow safely*, Starting on Sat06/03/25 at 1450 06/03/2025 active dextrose 15 gram/60 mL oral solution 30 g 30 g, oral, Every 15 min PRN, low blood sugar, hypoglycemia *Patient conscious AND able to drink and swallow safely*, Starting on Sat06/03/25 at 1450 06/03/2025 active Glucagon HCl (rDNA) injection 1 mg 1 mg, intramuscular, Once as needed, low blood sugar, severe hypoglycemia, Starting on Sat06/03/25 at 1450, For 1 dose 06/03/2025 active insulin lispro injection 2-12 Units 2-12 Units, subcutaneous, 3 times daily before meals, First dose on Sat06/03/25 at 1630, Indication: Total Daily Dose (TDD) 40 - 80 units. Correction Scale: Moderate Dose Administer with meal and/or mealtime dose of insulin to correct high blood glucose If mealtime insulin dose not given (e.g. patie 06/03/2025 active polyethylene glycol (MIRALAX) packet 17 g 17 g, oral, Daily, First dose on Sat06/03/25 at 1025, Bowel Regimen - for prevention of constipation 06/03/2025 active senna-docusate (PERICOLACE) 8.6-50 mg per tablet 1 tablet 1 tablet, oral, 2 times daily, First dose on Sat06/03/25 at 1025, Bowel Regimen - for prevention of constipation 06/03/2025 active cefTRIAXone (ROCEPHIN) 2 g in sterile water 20 mL IV syringe 2 g, intravenous, Administer over 3 Minutes, Once, On Sat06/02/25 at 0057, For 1 dose, Do not administer simultaneously with any calcium containing solutions via a Y-site in any patient., Indication: Sepsis, Urinary Tract/Genitourinary , Suspected source: Complicated pyelonephritis or UTI with bactere 06/02/2025 completed cefpodoxime (VANTIN) 200 mg tablet Take 1 tablet (200 mg total) by mouth 2 (two) times a day for 10 days. 06/02/2025 active DULoxetine (CYMBALTA) [address] capsule 05/26/2025 active *patient own med* mirabegron (MYRBETRIQ) 24 hr tablet 50 mg 50 mg, oral, Nightly, First dose on Sat06/04/25 at 2100, Drug Name: Myrbetriq, Form: tablet, Length of Therapy: Indefinite, How soon needed? (normally 72 hrs needed to procure): 0-24 hrs, Reason for Non-Formulary: non-formulary 05/04/2025 active LORazepam (ATIVAN) tablet 0.5 mg 0.5 mg, oral, Once, On Sat04/27/25 at 0144, For 1 dose 04/27/2025 5 completed ALPRAZolam (XANAX) 0.5 mg tablet Take 1 tablet (0.5 mg total) by mouth at bedtime as needed for anxiety for up to 7 days. Max Daily Amount: 0.5 mg 04/27/2025 active carbidopa-levodopa CR (SINEMET CR) 50-200 mg per CR tablet Take 1 tablet by mouth at bedtime. 03/05/2025 active apixaban (ELIQUIS) 5 mg tablet Take 1 tablet (5 mg total) by mouth 2 (two) times a day. 11/02/2024 active aspirin 81 mg EC tablet Take 1 tablet (81 mg total) by mouth 1 (one) time each day. 11/02/2024 active mirabegron (Myrbetriq) 25 mg 24 hr tablet Take 1 tablet (25 mg total) by mouth. 09/25/2024 5 aborted cefTRIAXone (ROCEPHIN) injection 1,000 mg 1,000 mg, Intramuscular, Once, On Sat03/09/24 at 2115, For 1 doseIf ordered IV then reconstitute with 10 mL sterile water or normal saline and administer IV push over 3 to 5 minutes. 03/10/2024 4 completed cephalexin (KEFLEX) 500 MG capsule Take 1 capsule (500 mg total) by mouth 4 (four) times a day for 5 days. 03/09/2024 4 active oxyCODONE (ROXICODONE) 5 MG immediate release tablet Take 1 tablet (5 mg total) by mouth every 6 (six) hours as needed. 03/09/2024 active citalopram hydrobromide (CITALOPRAM ORAL) Take 10 mg by mouth 1 (one) time each day. 01/17/2022 active citalopram hydrobromide (CITALOPRAM ORAL) Take 10 mg by mouth 1 (one) time each day. 01/17/2022 active coenzyme Q-10 (Co Q-10) 200 mg capsule Take 1 capsule (200 mg total) by mouth 2 (two) times a day. 07/19/2021 active rasagiline (AZILECT) 1 mg tablet Take 1 tablet (1 mg total) by mouth 1 (one) time each day. 09/08/2019 active carbidopa-levodopa (SINEMET) 25-100 mg per tablet Take 2 tablets by mouth 3 (three) times a day. 08/17/2019 active metFORMIN (GLUCOPHAGE) 500 mg tablet Take 1 tablet (500 mg total) by mouth 1 (one) time each day with breakfast. 08/16/2019 active Crestor 5 mg tablet Take 1 tablet (5 mg total) by mouth 1 (one) time each day. 05/01/2019 active metFORMIN (GLUCOPHAGE) 1,000 mg tablet Take 0.5 tablets (500 mg total) by mouth 1 (one) time each day with breakfast. 05/01/2019 active metoprolol succinate (TOPROL-XL) 25 mg 24 hr tablet Take 1 tablet (25 mg total) by mouth 1 (one) time each day. 08/20/2014 5 aborted cephalexin 500 mg capsule 4 completed oxycodone 5 mg tablet 4 completed cefdinir 300 mg capsule 4 completed citalopram 10 mg tablet active Eliquis 5 mg tablet acti ve metformin 500 mg tablet active metoprolol succinate ER 50 mg tablet,extended release 24 hr active oxycodone 5 mg tablet active rasagiline 1 mg tablet active rosuvastatin 5 mg tablet active rosuvastatin 5 mg tablet active Allergies Allergen Reaction Severity Comment Documented Date Source Statu s METRONIDAZOLE HIVES 04/27/2025 [facility] active ADHESIVE RASH [facility] AMLODIPINE SWELLING Other Reaction( s): swelling of hands and legs [facility] Problems Problem Status Onset Date Problem Type Date of Resolution Source Bacteremia active EncounterDiagnosisAct [facility], traumatic active EncounterDiagnosisAct [facility] Pyelonephritis active EncounterDiagnosisAct [facility] Acute pyelonephritis active 2025-06-03 ProblemAct [facility] Open fracture finger distal phalanx, tuft active 2024-03-11 ProblemAct [facility] Encounters Encounter Type Encounter Reason Primary Diagnosis Location Date Emergency revist possible UTI again Acute cystitis without hematuria [facility] 07/01/20 25 Inpatient uti Tubulo-interstit ial nephritis, not specified as acute or chronic [facility] 06/03/20 25 Emergency back pain , fever, trouble breathing Tubulo-interstitial nephritis, not specified as acute or chronic [facility] 06/02/20 25 Emergency UTI AND ANIEXTY Acute cystitis w ith hematuria [facility] 04/27/20 25 Ambulatory [facility] 03/23/20 24 Ambulatory [facility] 03/20/20 24 Ambulatory [facility] 03/12/20 24 Ambulatory [facility] 03/11/20 24 Ambulatory [facility] 03/11/20 24 Ambulatory [facility] 03/11/20 24 Ambulatory [facility] 03/11/20 24 Ambulatory [facility] 03/10/20 24 Emergency Complete traumatic metacarpophalangeal amputation of unspecified finger, initial encounter Complete traumatic metacarpophalangeal amputation of unspecified finger, initial encounter [facility] 03/09/20 24 Care Team Organization Name Specialty Phone Email Start Date End Da te [facility] Finesse Manjarrez MD Primary Care 04/27/2025 [facility] Finesse Manjarrez MD Primary Care 04/27/2025 [facility] FINESSE MANJARREZ Primary Care 08/2024 [facility] 03/09/2024 [facility] 03/09/2024 06/15/2025
--- OUTSIDE RECORDS SUMMARY | 2025-07-19 12:24 | XMS_ITS | Encounter Summary ---
Author Organization [facility] Address [address] [place] [address] Care Team Providers Care Alignment Specialist Name Role Phone Callum Wolff MD Primary Care Provider [phone] Encounter Details Date Type Department Care Team (Late st Contact Info) Description 04/05/2025 Lab Requisition [facility] - Main Lab [address] [facility] [place] [address] Karine Hopkins PA [address] [place] [address] Urinary tract infection, site not specified Social History Tobacco Use Types Packs/Day Years Used Date Smoking Tobacco: Never Assessed Sex and Gender Information Value Date Recorded Sex Assigned at Male 04/27/2025 1:16 AM EDT Legal Sex Male 9:54 PM EST Gender Identity Male 04/27/2025 1:16 AM EDT Sexual Orientation Straight 04/27/2025 1: 16 AM EDT documented as of this encounter Plan of Treatment Not on file documented as of this encounter Procedures Procedure Name Priority Date/Time Associated Diagnosis Comments CULTURE URINE Routine 04/05/2025 11:15 AM EDT Urinary tract infection, site not specified documented in this encounter Results * (ABNORMAL) Culture urine (04/05/2025 11:15 AM EDT) Culture, Urine >100,000 CFU/mL Klebsiella pneumoniae ssp pneumoniae(A) SHERRI 04/07/2025 10:28 AM EDT [facility] Comment: This is an edited result. Previous organism was Gram negative bacilli on 04/06/2025 at 0752 EDT. Urine Urine specimen obtained by clean catch procedure / Unknown 04/05/2025 11:15 AM EDT 04/05/2025 1:11 PM EDT Narrative Organism Antibiotic Method Susceptibility Klebsiella pneumoniae ssp pneumoniae Amoxicillin/Clavulanate SHERRI <=2 ug/ml: Susceptible Klebsiella pneumoniae ssp pneumoniae Ampicillin/Sulbactam SHERRI 4 ug/ml: Susceptible Klebsiella pneumoniae ssp pneumoniae Piperacillin/Tazobactam SHERRI <=4 ug/ml: Susceptible Klebsiella pneumoniae ssp pneumoniae Cefazolin (Urine) SHERRI 2 ug/ml: Susceptible Klebsiella pneumoniae ssp pneumoniae Cefoxitin SHERRI <=4 ug/ml: Susceptible Klebsiella pneumoniae ssp pneumoniae Ceftazidime SHERRI <=0.5 ug/ml: Susceptible Klebsiella pneumoniae ssp pneumoniae Ceftriaxone SHERRI <=0.25 ug/ml: Susceptible Klebsiella pneumoniae ssp pneumoniae Cefepime SHERRI <=0.12 ug/ml: Susceptible Klebsiella pneumoniae ssp pneumoniae Meropenem SHERRI <=0.25 ug/ml: Susceptible Klebsiella pneumoniae ssp pneumoniae Amikacin SHERRI <=1 ug/ml: Susceptible Klebsiella pneumoniae ssp pneumoniae Gentamicin SHERRI <=1 ug/ml: Susceptible Klebsiella pneumoniae ssp pneumoniae Ciprofloxacin SHERRI <=0.06 ug/ml: Susceptible Klebsiella pneumoniae ssp pneumoniae Levofloxacin SHERRI <=0.12 ug/ml: Susceptible Klebsiella pneumoniae ssp pneumoniae Nitrofurantoin SHERRI 64 ug/ml: Intermediate Klebsiella pneumoniae ssp pneumoniae Trimethoprim/Sulfamethoxazo le SHERRI <=20 ug/ml: Susceptible us [facility] MICROBIOLOGY - GENERAL ORD ERABLES Final Result [facility] [address] [place] [address], documented in this encounter Visit Diagnoses Diagnosis Urinary tract infection, site not specified documented in this encounter Care Teams Alignment Specialist Relationship Specialty Start Date End Date Callum Wolff MD [address] [place] [phone] PCP - General 03/09/24 documented as of this encounter
== END 2025-07-19 12:32 | disposition home or self-care (01) ==
LOC: HO.HSMS 11:10
PROVIDERS: PCP Internal Medicine; Visit Provider Psychiatry & Neurology Neurology
DX: G20.B2 Parkinson's disease with dyskinesia, with fluctuations (principal); F32.89 Other specified depressive episodes; M54.42 Lumbago with sciatica, left side; G89.29 Other chronic pain
CPT/HCPCS: 99214; G2211

== ENCOUNTER → 2025-07-19 11:10 | Outpatient (BNVA) | payer MEDICARE, BC, SELFPAY | PROVIDERS: PCP Internal Medicine; Visit Provider Psychiatry & Neurology Neurology | DX: G20.B2 Parkinson's disease with dyskinesia, with fluctuations (principal); F32.89 Other specified depressive episodes; M54.42 Lumbago with sciatica, left side; G89.29 Other chronic pain | CPT/HCPCS: 99212 ==